=== PATIENT | female | born 1935 | race Caucasian/White ===

== ENCOUNTER → 2017-08-08 15:21 | Outpatient (CLI) | payer MEDICARE, SELFPAY ==
--- NOTE | 2017-08-08 15:40 | XR_ITS ---
XR wrist LT min 3V HISTORY injury with pain and swelling ITS.REASON: LEDT WRIST PAIN ORDERING PHYSICIAN: Heather Parks PATIENT AGE: 82 years COMPARISON: None FINDINGS: Nondisplaced distal radial fracture is present. There is a 1 cm anterior displacement of the distal fracture fragment and 7 mm lateral displacement of the distal fracture fragment. There is a transverse component of the fracture and probably a longitudinal component is well not well seen. CT may confirm. Avulsion fracture involves the tip of the ulnar styloid process as mildly displaced distally x 4 mm. Severe osteoarthritic changes are present first metacarpal carpal joint IMPRESSION: Comminuted displaced fracture of the distal radius with suspected intra-articular component which may be confirmed with CT along with avulsion fracture the ulnar styloid.
--- NOTE | 2017-08-08 19:23 | PC.NURSE ---
HERE WITH OUTPATIENT ORDER FOR SPLINTING OF LEFT WRIST PER BOGDAN MARTINEZ APRN. TO FOLLOW UP WITH DR MATUTE. DR MATUTE CALLED FOR CONSULT PER BOGDAN MARTINEZ APRN
--- NOTE | 2017-08-08 19:23 | PC.NURSE ---
order from primary care for Ortho-Glass splint. Review of x-ray read by Dr. Lutz states due to a displaced fracture of the total radius with suspected intra-articular component also with avulsion fracture of the ulnar styloid. Discussed x-ray report with Dr. Armstrong he recommended a sugar tong splint and sling. Pulses within normal limits patient states no numbness to hands or fingers. Splint placed instructed patient and family on ways to loosen the splint if swelling increases. Also to monitor for pulses and numbness. Patient states her primary care doctor is going to call for an appointment with Dr. Armstrong tomorrow morning. Patient instructed to return or be seen in the ER if symptoms worsen or do not improve.
== END ==
PROVIDERS: PCP Nurse Practitioner Family; Visit Provider Nurse Practitioner Family
DX: M25.532 Pain in left wrist (principal)
CPT/HCPCS: 73110

== ENCOUNTER → 2017-08-30 09:06 | Outpatient (CLI) | payer MEDICARE, SELFPAY ==
--- NOTE | 2017-08-30 09:09 | XR_ITS ---
XR wrist LT min 3V HISTORY follow-up fracture/ORIF ITS.REASON: 2 wk post op ORIF LT wrist ORDERING PHYSICIAN: Toribio Armstrong MD PATIENT AGE: 82 years COMPARISON: 08-17-17 FINDINGS: Anterior bone plate remains in place stabilizing a distal radial fracture which is in good alignment. Mildly displaced ulnar styloid avulsion fracture once again noted unchanged. IMPRESSION: No change status post ORIF distal radial fracture with good alignment
--- NOTE | 2017-08-30 09:19 | XR_ITS ---
XR tibia fibula RT 2V CLINICAL INDICATION: ITS.REASON: RT LEG PAIN,RT WRIST PAIN ORDERING PHYSICIAN: Toribio Armstrong MD PATIENT AGE: 82 years COMPARISON: None FINDINGS: No fracture or dislocation. Mild osteoarthritic changes are present at the knee and there is some scattered vascular calcification. IMPRESSION: Osteoarthritis of the knee, no acute finding
--- NOTE | 2017-08-30 09:19 | XR_ITS ---
XR wrist RT 2V HISTORY pain and numbness in right hand/wrist ITS.REASON: RT LEG PAIN,RT WRIST PAIN ORDERING PHYSICIAN: Toribio Armstrong MD PATIENT AGE: 82 years COMPARISON: None FINDINGS: There is faint increased density at the base of the first metacarpal. This is nonspecific and could be related to recent fracture. Please correlate with clinical parameters. Prominent osteophyte is present along the distal and ulnar aspect of the trapezium with mild osteoarthritic change of the first metacarpal carpal joint. The calcification at the base of the first metacarpal could be related to chondrocalcinosis. IMPRESSION: 1. Osteoarthritic change of the first metacarpal carpal joint. 2. Minimal calcification at the base of the first metacarpal which could relate to chondrocalcinosis or posttraumatic change..
== END ==
PROVIDERS: PCP Nurse Practitioner Family; Visit Provider Orthopaedic Surgery
DX: M79.604 Pain in right leg (principal); M25.531 Pain in right wrist
CPT/HCPCS: 73100; 73110; 73590

== ENCOUNTER 2017-08-30 11:07 | Outpatient (RCR) | payer MEDICARE, SELFPAY | END 2017-08-30 11:08 | disposition home or self-care (01) | LOC: OT 11:07 | PROVIDERS: Family Provider Nurse Practitioner Family; PCP Nurse Practitioner Family; Visit Provider Orthopaedic Surgery | DX: Z48.89 Encounter for other specified surgical aftercare (principal) | CPT/HCPCS: 73100; 73110; 73590; 97760 ==

== ENCOUNTER → 2017-09-27 09:33 | Outpatient (CLI) | payer MEDICARE, SELFPAY ==
--- NOTE | 2017-09-27 09:35 | XR_ITS ---
XR wrist LT min 3V HISTORY follow-up fracture ITS.REASON: 6WKS POST OP LT WRIST ORIF ORDERING PHYSICIAN: Toribio Armstrong MD PATIENT AGE: 82 years Comparison: 08/30/2017 FINDINGS: Bohler bone plate remains in place stabilizing comminuted distal radial fracture with good alignment of the fracture fragments. Increasing callus formation noted laterally The anterior splint has been removed. Avulsion of the ulnar styloid once again noted. Degenerative changes are present at the first metacarpal carpal joint IMPRESSION: Good alignment healing distal radial fracture status post ORIF Severe osteoarthritis first metacarpocarpal
== END ==
PROVIDERS: PCP Nurse Practitioner Family; Visit Provider Orthopaedic Surgery
DX: Z47.89 Encounter for other orthopedic aftercare (principal)
CPT/HCPCS: 73110

== ENCOUNTER 2020-11-11 02:28 | Inpatient (IN) | payer MEDICARE, MEDICAID, SELFPAY ==
[2020-11-11] VITALS (21 sets, daily range): BP systolic 94–167; BP diastolic 55–87; PULSE 68–89; RESP 14–34; TEMP 36.6–37.6; O2SAT 85–98; BMI 31.8
--- NOTE | 2020-11-11 02:28 | XR_ITS ---
PROCEDURE INFORMATION: Exam: XR Chest Exam date and time: 11/11/2020 2:28 AM Age: 85 years old Clinical indication: Shortness of breath; Patient HX: Short of breath PT has been put on bipap; Additional info: SOA TECHNIQUE: Imaging protocol: XR of the chest. Views: 1 view. Total images: 1 COMPARISON: CR CXR2V XR chest 2V 08/17/2017 10:43 AM FINDINGS: Lungs: Bibasilar pulmonary consolidations favor pneumonia. Pulmonary vascular congestion. Pleural spaces: Small bilateral pleural effusions are present. Heart/Mediastinum: Cardiomegaly. Vasculature: Atherosclerosis is evident. Bones/joints: Unremarkable. IMPRESSION: 1. Bibasilar pulmonary consolidations favor pneumonia. Radiographic surveillance is recommended to document resolution. 2. Pulmonary vascular congestion. 3. Small bilateral pleural effusions are present.
--- NOTE | 2020-11-11 02:29 | ECG_ITS ---
APPROVED REPORT Exam: Resting ECG HR:85 bpm ECG Measurements Heart Rate 85 AXES AL 134 P 29 QRSd 80 QRS 99 QT 336 T 22 QTc 399 Conclusion Normal sinus rhythm with sinus arrhythmia Rightward axis Borderline ECG Electronically signed by : Ralph Gavlez, 11/11/2020 16:59:21
[2020-11-11 02:31] LABS: ABG Base Excess 20.7 mmol/L (-2.4-2.3); ABG HCO3 48.9 mmhg (22.0-26.0); ABG Oxygen Saturation 83 % (90-100)
--- NOTE | 2020-11-11 02:31 | CT_ITS ---
PROCEDURE: CT ANGIO CHEST PE PROTOCOL CLINCIAL INDICATION: SOA COMPARISON: CR XR CHEST PORTABLE from 11/11/2020 TECHNIQUE: IV Contrast: 70ML Isovue 370 Axial images obtained with sagittal and coronal reformats. All CT scans at the facility use one or more dose reduction, viz: automated exposure control, ma/kV adjustment per patient size (including targeted exams where dose is matched to indication, i.e. head), or iterative reconstruction technique. FINDINGS: HEART AND MEDIASTINAL STRUCTURES: There is cardiomegaly. No evidence of aortic aneurysm or dissection. No evidence of pulmonary embolus. No mediastinal or hilar mass. There are few small mediastinal lymph nodes LUNGS AND PLEURAL SPACES: There are low lung volumes with centrilobular emphysema and scattered areas of scarring with pulmonary fibrotic changes peripherally in the upper and lower lobes. There is consolidation in both lower lobes posteriorly and inferiorly. There are small bilateral pleural effusions. There are low lung volumes bilaterally. Atelectatic changes are present in the inferior aspect of the lingula. BONY STRUCTURES: Kyphosis of the thoracic spine UPPER ABDOMEN: Medium-sized hiatal hernia. 3.4 cm left renal cyst ADDITIONAL FINDINGS: No other significant abnormalities. IMPRESSION: 1. No evidence of pulmonary embolus. 2. Centrilobular emphysema with pulmonary fibrosis. Bilateral lower lobe consolidation posteriorly which may be due to volume loss and or pneumonia with small bilateral effusions. Dictated by: Torey Pascual MD 11/11/2020 12:52 Torey Pascual MD in [place] 11/11/2020 12:52
[2020-11-11 02:33] LABS: ABG PH 7.19 mmol/L (7.35-7.45); Allen's Test Acceptable; Oxygen 6L %; Source Right Radial
[2020-11-11 02:34] LABS: ABG PCO2 131.7 mmhg (35.0-45.0); ABG PO2 48.6 mmhg (80-100)
[2020-11-11 02:37] LABS: Basophils % 0.6 % (0.1-2.0); Eosinophils % 0.5 % (0.1-12.0); Hematocrit 39.2 % (37.0-47.0); Hemoglobin 11.4 g/dL (12.2-16.2); Lymphocytes # 0.3 K/mm3 (0.7-4.5); Lymphocytes % 5.3 % (10-50); Mean Corpuscular HGB Conc 29.1 g/dL (31.8-35.4); Mean Corpuscular Hemoglobin 28.9 pg (27.0-31.2); Mean Corpuscular Volume 99.1 fl (81-99); Mean Platelet Volume 7.5 fl (7.4-10.4); Monocytes # 0.4 K/mm3 (0.1-1.0); Monocytes % 6.8 % (1.7-9.3); Neutrophils # 5.4 K/mm3 (1.8-7.8); Neutrophils % 86.8 % (37.0-80.0); Platelet Count 177 K/mm3 (142-424); Red Blood Count 3.95 M/mm3 (4.20-5.40); White Blood Count 6.2 K/mm3 (4.8-10.8)
--- NOTE | 2020-11-11 02:37 | PC.NURSE ---
MD notified of critical ABG results, ordered Bipap. Respiratory notified
[2020-11-11 02:41] LABS: Chloride 96 mmol/L (98-107)
[2020-11-11 02:42] LABS: Potassium 4.3 mmoL/L (3.5-5.1); Sodium 146 mmol/L (136-145)
[2020-11-11 02:44] LABS: Alanine Aminotransferase 18 U/L (12-78); Aspartate Amino Transferase 25 U/L (14-36); Blood Urea Nitrogen 17 mg/dl (7-17); Creatinine Clearance Estimated 52 mL/min (50-200); Estimated Glomerular Filt Rate 79 ml/min (>60); GFR (African American) 96 ML/MIN (>60)
[2020-11-11 02:45] LABS: Albumin Level 4.1 g/dl (3.5-5.0); Albumin/Globulin Ratio 1.1 (1.1-1.8); Alkaline Phosphatase 62 U/L (38-126); Bilirubin,Total 0.3 mg/dl (0.2-1.3); Calcium 9.6 mg/dl (8.4-10.2); Globulin 3.6 g/dL (1.3-3.2); Glucose 175 mg/dl (74-100); Total Protein,Serum 7.7 g/dl (6.3-8.2)
[2020-11-11 02:49] LABS: MANUAL DIFFERENTIAL MANUAL DIFFERENTIAL (MANUAL DIFF)
[2020-11-11 02:50] LABS: C-Reactive Protein 4.3 mg/L (0-4)
[2020-11-11 02:56] LABS: Anion Gap 8.3 mEq/L (5-15)
[2020-11-11 02:57] LABS: Carbon Dioxide 46 mmol/L (22.0-30.0)
--- NOTE | 2020-11-11 02:57 | PC.NURSE ---
Lorrie from lab called critical CO2 and name/ verified.
[2020-11-11 03:03] LABS: Coronavirus 19, PCR Not Detected (NotDetected); Influenza A, PCR Not Detected (NotDetected); Influenza B, PCR Not Detected (NotDetected)
[2020-11-11 03:04] LABS: NT Pro Brain Natriuretic Pep. 208 pg/mL (0-450)
[2020-11-11 03:11] LABS: Lactic Acid 0.8 mmol/L (0.7-2.1)
[2020-11-11 03:12] LABS: Procalcitonin 0.045 ng/mL (0.0-2.0)
[2020-11-11 03:39] LABS: Erythrocyte Sedimentation Rate 24 mm/hr (0-30)
[2020-11-11 03:57] LABS: Lymphocytes % 13 % (10-50); Monocytes % 1 % (2-9); Neutrophils % 84 % (42-76); Platelet Estimate Normal; Stomatocytes 1+; Total Cells Counted 100
[2020-11-11 03:58] LABS: Macrocytosis 1+
--- NOTE | 2020-11-11 04:16 | HMH.EDSOB ---
ED Disposition Clinical Impression: Acute exacerbation of chronic obstructive airways disease Respiratory failure Qualifiers: Chronicity: acute on chronic Respiratory failure complication: hypoxia and hypercapnia Qualified Code(s): J96.21 - Acute and chronic respiratory failure with hypoxia; J96.22 - Acute and chronic respiratory failure with hypercapnia Disposition: Admitted As Inpatient Condition on Discharge: Serious - Critical Care Critical Care Time: No Attestation: On 11/11/20, the high probability of a clinically significant, sudden or life threatening deterioration of the following system(s) required my full and direct attention, intervention and personal management. The time I documented below is in addition to time spent performing reported procedures but includes the following listed in this critical care notation. Medical Decision Making - Medical Records Medical records reviewed: Yes: I reviewed the patient's medical records. - Julio Inquiry Pt receiving controlled substance: No Vital Signs: 11/11/20 02:26 11/11/20 03:46 Temperature 99.1 F Temperature Source Oral Pulse Rate [Right] 86 Respiratory Rate 28 H Blood Pressure [Right Arm] 148/60 H Blood Pressure Mean [Right Arm] 89 Blood Pressure Source [Right Arm] Automatic Cuff 02 Sat by Pulse Oximetry 89 L 94 L Oxygen Delivery Method Nasal Cannula BiPAP Oxygen Flow Rate (LPM) 6 - Lab Data Lab results reviewed: Yes: I reviewed the patient's lab results. Lab Results 11/11/20 02:15: WBC 6.2, RBC 3.95 L, Hgb 11.4 L, Hct 39.2, MCV 99.1 H, MCH 28.9, MCHC 29.1 L, RDW 13.0, Plt Count 177, MPV 7.5, Neut % (Auto) 86.8 H, Lymph % (Auto) 5.3 L, [place] % (Auto) 6.8, Eos % (Auto) 0.5, Baso % (Auto) 0.6, Neut # (Auto) 5.4, Lymph # (Auto) 0.3 L, [place] # (Auto) 0.4, Eos # (Auto) 0.0, Baso # (Auto) 0.0, Total Counted 100, Neutrophils % (Manual) 84 H, Lymphocytes % (Manual) 13, Monocytes % (Manual) 1 L, Basophils % (Manual) 2.0 H, Platelet Estimate Normal, RBC Morphology Not Reportable, Macrocytosis 1+, Stomatocytes 1+, ESR 24 11/11/20 02:15: Sodium 146 H, Potassium 4.3, Chloride 96 L, Carbon Dioxide 46 H*, Anion Gap 8.3, BUN 17, Creatinine 0.70, Estimated Creat Clear 52, Estimated GFR 79, Est GFR ( Amer) 96, Glucose 175 H, Calcium 9.6, Total Bilirubin 0.3, AST 25, ALT 18, Alkaline Phosphatase 62, C-Reactive Protein 4.3 H, Total Protein 7.7, Albumin 4.1, Globulin 3.6 H, Albumin/Globulin Ratio 1.1 11/11/20 02:15: Procalcitonin 0.045 11/11/20 02:15: NT-Pro-B Natriuret Pep 208 11/11/20 02:27: Specimen Source Right radial, O2 % 6l, ABG pH 7.19 L*, ABG pCO2 131.7 H, ABG pO2 48.6 L, ABG HCO3 48.9 H, ABG Total CO2 53.0 H, ABG O2 Saturation 83 L*, ABG Base Excess 20.7 H, Torey Test Acceptable 11/11/20 02:40: SARS-CoV-2 (PCR) Not detected, Influenza A Untype (PCR) Not detected, Influenza Type B (PCR) Not detected 11/11/20 02:50: Lactate 0.8 Result diagrams: 11/11/20 02:15 11/11/20 02:15 Orders (Tests/Meds): ED MEDICATIONS Generic Name Dose Route Start Last Admin Trade Name Agustínq PRN Reason Stop Dose Admin Sodium Chloride 1,000 mls @ 999 mls/hr 11/11/20 02:45 11/11/20 02:52 Sod Chlor 0.9% 1000ml Bag IV 11/11/20 03:45 999 mls/hr .Q1H1M LATRICIA Administration Azithromycin 500 mg/ Sodium 250 mls @ 250 mls/hr 11/11/20 02:45 11/11/20 02:52 Chloride IV 11/25/20 02:44 250 mls/hr Q24H LATRICIA Administration Protocol Ceftriaxone Sodium 1 gm/ 50 mls @ 100 mls/hr 11/11/20 02:45 11/11/20 02:53 Sodium Chloride IV 11/25/20 02:44 100 mls/hr Q24H LATRICIA Administration Protocol Discontinued Medications Generic Name Dose Route Start Last Admin Trade Name Freq PRN Reason Stop Dose Admin Methylprednisolone Sodium Succinate 125 mg 11/11/20 02:30 11/11/20 02:33 Methylprednisolone Sod Succ 125mg Vial IV 11/11/20 02:31 Not Given ONCE ONE ORDERS Category Date Time Status CT angio chest PE protocol Stat Cat Scan 11/11/20 02:
--- NOTE | 2020-11-11 04:34 | PC.NURSE ---
Pt is not stable enough for transport to CT, I spoke with Dr Fuentes and he agreed to hold on the CT at this time.
[2020-11-11 04:52] LABS: Troponin I 0.02 ng/ml (0.00-0.034)
--- NOTE | 2020-11-11 06:59 | PC.NURSE ---
A&OX4. PT ON BIPAP, NOT TOLERATING VERY WELL. PT IS PULLING AT BIPAP, GETTING VERY ANGRY. F/C DRAINING BRIGHT YELLOW URINE. NO C/O PAIN/SOA SINCE ARRIVAL. VSS WILL CONTINUE TO MONITOR.
--- NOTE | 2020-11-11 07:14 | HMH.HP ---
*Admission Date: 11/11/20 *Chief complaint: hypoxic *History of present illness: Ms. Pang is an 85-year-old female with chronic hypoxemic respiratory failure (end-stage COPD) on 3-4 L nasal cannula at home. She was brought to the ER last night via EMS due to worsening confusion, tremor, hypoxia at home. Per ER documentation and her granddaughter at bedside, patient's oxygen was turned up to 5 L and she was still satting in the 80s at best. When EMS arrived they put her on higher oxygen support with inability to get her above 90. Family and EMS convinced her to come to the ER for further evaluation. On arrival she was worked up for her respiratory failure. Initial labs concerning for hypercarbia, hypoxemia, and possible pneumonia on chest imaging. Patient additionally has history of hypertension, GERD, and former tobacco use. Patient more alert on interview this morning. CO2 has decreased from over 120 to the 90 range. Respiratory acidosis improving. Patient transition to nasal cannula for interview and able to answer questions though disoriented to place and time. Denies any pain. Still feels short of breath. Afebrile. Blood pressure stable. Family at bedside, updated on plan and diagnosis at this time. [facility] History I have reviewed the patient's past medical history: Yes Medical History: Reports:: Chronic Obstructive Pulmonary Disease (COPD), Gastroesophageal Reflux Disease(GERD), Hyperlipidemia Denies:: Cancer, Diabetes Mellitus Type 1, Diabetes Mellitus Type 2, Internal Pacemaker, MRSA, Seizures *Have you ever received a pneumonia vaccine?: No *Have you received a flu vaccine this season?: No Other Medical History: Reports: Arthritis, Cataracts. Denies: Blood Transfusion Reaction Other Surgeries: Yes: Other. No: Pacemaker Amputation: No Fractures: Yes - *Social History Smoking Status: Former smoker Alcohol Intake: never *Occupational Status:: retired Housing: house Household Members: family *Travel in the last 8 weeks: None Family Hx:: No significant family history Review of Systems - Review of Systems Review of systems:: pertinent systems reviewed and negative unless documented below (14 point review of systems performed, pertinent positives and negatives as per HPI) - *Neurologic Denies headache(s), Denies seizure-like activity Meds Home Medications Medication Instructions Recorded Confirmed Type furosemide 20 mg tablet 20 mg PO DAILY 30 Days #30 08/09/11/11/20 History losartan 100 mg tablet 50 mg PO DAILY 30 Days tab 08/09/17 11/11/20 History omeprazole 20 mg capsule,delayed 20 mg PO DAILY 30 Days #30 08/09/17 11/11/20 History release potassium chloride 10 mEq 10 meq PO DAILY 30 Days #30 08/09/17 11/11/20 History capsule,extended release Multivitamin [Multivitamins] 1 tab PO DAILY 08/17/17 11/11/20 History Albuterol Sulfate [Albuterol 1 - 2 puff IH Q4HP PRN 11/11/20 11/11/20 History Sulfate Hfa] Fluticasone/Umeclidin/Vilanter 1 puff IH DAILY 11/11/20 11/11/20 History [Trekathya Ellipta 100-62.5-25] Allergies Allergy/AdvReac Type Severity Reaction Status Date / Time cephalexin Allergy Intermediate Unknown Verified 11/11/20 08:06 allergy reaction Exam Vital signs and Labs for Last 24 Hours: Temp Pulse Resp BP Pulse Ox 98.6 F 68 25 H 156/85 H 94 L 11/11/20 05:30 11/11/20 05:30 11/11/20 05:30 11/11/20 05:30 11/11/20 04:20 Laboratory Results - last 24 hr 11/11/20 02:15: WBC 6.2, RBC 3.95 L, Hgb 11.4 L, Hct 39.2, MCV 99.1 H, MCH 28.9, MCHC 29.1 L, RDW 13.0, Plt Count 177, MPV 7.5, Neut % (Auto) 86.8 H, Lymph % (Auto) 5.3 L, [place] % (Auto) 6.8, Eos % (Auto) 0.5, Baso % (Auto) 0.6, Neut # (Auto) 5.4, Lymph # (Auto) 0.3 L, [place] # (Auto) 0.4, Eos # (Auto) 0.0, Baso # (Auto) 0.0, Total Counted 100, Neutrophils % (Manual) 84 H, Lymphocytes % (Manual) 13, Monocytes % (Manual) 1 L, Basophils % (Manual) 2.0 H, Platelet Estimate Normal, RBC Morphology Not Reportable, Mac
[2020-11-11 07:23] LABS: ABG Base Excess 13.5 mmol/L (-2.4-2.3); ABG HCO3 40.6 mmhg (22.0-26.0); ABG Oxygen Saturation 90 % (90-100); ABG PH 7.26 mmol/L (7.35-7.45); ABG TCO2 43.5 mmhg (23-27)
[2020-11-11 07:24] LABS: Allen's Test ACCEPTABLE; Oxygen 45% %; Source L RADIAL; Tidal Volume 20/10
[2020-11-11 07:26] LABS: ABG PCO2 93.4 mmhg (35.0-45.0)
[2020-11-11 07:27] LABS: ABG PO2 56.8 mmhg (80-100)
--- NOTE | 2020-11-11 07:30 | XR_ITS ---
PROCEDURE: XR CHEST PORTABLE CLINICAL HISTORY: sob Shortness of breath COMPARISON: CT ABDPELW/O CT ABD PELVIS W/O CONTRAST from 11/10/2014 CR CXR2V XR chest 2V from 08/17/2017 CR XR CHEST PORTABLE from 11/11/2020 FINDINGS: There is cardiomegaly with mild pulmonary venous congestion. Diffuse pulmonary fibrotic changes are once again noted. There are low lung volumes. Hiatal hernia. Atelectasis or infiltrate once again noted in the lung bases. Lucency is noted over the posterior lateral aspect of the left 6th rib and could be due to a fracture versus overlying artifact. IMPRESSION: Overall no significant change in the mild CHF with atelectasis or infiltrate in the lung bases. Possible left 6th rib fracture Dictated by: Torey Pascual MD 11/11/2020 09:52 Torey Pascual MD in [place] 11/11/2020 09:52
--- NOTE | 2020-11-11 07:30 | PC.NURSE ---
CRITICAL ABG RECEIVED. NAME AND VERIFIED. RESULTS REPORTED TO MD BAR.
--- NOTE | 2020-11-11 09:53 | HMH.PHAINT ---
MEDICATION RECONCILIATION COMPLETE USING LIST FROM MD OFFICE.
--- NOTE | 2020-11-11 09:57 | P.CONPHA_ITS ---
[facility] Pharmacy VTE Monitoring - Patient Demographics Admission date: 11/11/20 Report Date: 11/11/20 Time: 09:57 Allergies/Adverse Reactions: Patient Allergies cephalexin Allergy (Intermediate, Verified 11/11/20 08:06) Unknown allergy reaction Height: 1.6 m Weight: 81.7 kg Patient Problems: Current Active Problems Acute exacerbation of chronic obstructive airways disease (Acute) Respiratory failure (Acute) Acute on chronic respiratory failure with hypercapnia (Acute) Anemia (Acute) Hypernatremia (Acute) COPD (chronic obstructive pulmonary disease) (Acute) - VTE Risk Labs: VTE Related Lab Results Hgb 11.4 g/dL (12.2-16.2) L 11/11/20 02:15 Hct 39.2 % (37.0-47.0) 11/11/20 02:15 Plt Count 177 K/mm3 (142-424) 11/11/20 02:15 BUN 17 mg/dl (7-17) 11/11/20 02:15 Creatinine 0.70 mg/dl (0.52-1.04) 11/11/20 02:15 Estimated Creat Clear 52 mL/min (50-200) 11/11/20 02:15 Was VTE Risk Assessment Performed: Yes VTE Score: 1 VTE Risk Level: Low Risk Clinical Trial Participant: No - Prophylaxis VTE Prophylaxis Ordered?: Yes Types of VTE Prophylaxis: TEDS Knee High
[2020-11-11 09:59] LABS: Basophils % 0.1 % (0.1-2.0); Eosinophils % 0.2 % (0.1-12.0); Hematocrit 38.2 % (37.0-47.0); Hemoglobin 10.9 g/dL (12.2-16.2); Lymphocytes # 1.1 K/mm3 (0.7-4.5); Lymphocytes % 18.1 % (10-50); Mean Corpuscular HGB Conc 28.5 g/dL (31.8-35.4); Mean Corpuscular Hemoglobin 28.3 pg (27.0-31.2); Mean Corpuscular Volume 99.3 fl (81-99); Mean Platelet Volume 7.5 fl (7.4-10.4); Monocytes # 0.1 K/mm3 (0.1-1.0); Neutrophils # 4.8 K/mm3 (1.8-7.8); Neutrophils % 79.6 % (37.0-80.0); Platelet Count 171 K/mm3 (142-424); Red Blood Count 3.85 M/mm3 (4.20-5.40); Red Cell Distribution Width 12.9 % (11.5-17.5)
[2020-11-11 10:02] LABS: Blood Urea Nitrogen 18 mg/dl (7-17); Calcium 9.1 mg/dl (8.4-10.2); Chloride 99 mmol/L (98-107); Creatinine Clearance Estimated 52 mL/min (50-200); Estimated Glomerular Filt Rate 117 ml/min (>60); GFR (African American) 142 ML/MIN (>60); Glucose 166 mg/dl (74-100); Magnesium 1.6 mg/dl (1.6-2.3); Potassium 4.9 mmoL/L (3.5-5.1); Sodium 146 mmol/L (136-145)
[2020-11-11 10:10] LABS: Anion Gap 11.9 mEq/L (5-15)
[2020-11-11 10:17] LABS: Carbon Dioxide 40 mmol/L (22.0-30.0)
--- NOTE | 2020-11-11 10:54 | PC.NURSE ---
notified of critical CO2 of 40 at 1016. repeated and verified pt name, , v# and critical value back. left message for Dr De La Cruz in office [id number]
--- NOTE | 2020-11-11 11:02 | PC.NURSE ---
back on bipap at this time r/t pt taking a nap. FIO2 increased to 60% r/t o2 sat at 83 on 45%
--- NOTE | 2020-11-11 11:03 | PC.NURSE ---
SRNA attempted to apply MOUSTAPHA hathaway, pt was initially agreeable. after one stocking applied pt stated that she did not want that! It hurts
--- NOTE | 2020-11-11 11:49 | CA_ITS ---
APPROVED REPORT EXAM: Comprehensive 2D, Doppler, and color-flow Echocardiogram Solderer Torch: Annabella Anthony, DREW, RVS Ht: 5 ft 2 in Wt: 180lbs BSA: 1.83 BP: 126/68 mmHg Indications: Respiratory failure, COPD-exacerbation 2D Dimensions IVSd 1.09 cm LVEF (Visual) 75.90 % PWd 1.04 cm LA Volume 52.00 mL LVDd 4.81 cm LA Volume Index 28.276714 mL/m2 (M/F) 16-34 LVDs 2.66 cm Aortic Root 2.73 cm Left Atrium 2.74 cm LVOT 1.74 cm (M/F) 1.5-2.5 M-Mode Dimensions LA Diam 4.15 cm (1.9-4.0) Ao Diam 2.91 cm (2.0-3.7) EPSs 0.42 cm TAPSE 2.87 (<1.7) LV Diastology E Decel Time 237.00 (160-240 msec) E/A Ratio 0.78 MED E' 7.50 (< 7 cm/sec) MED A' 10.60 cm/s E'/MED E' Ratio 13.17 (>14) LAT E' 11.50 (<10 cm/sec) LAT A' 14.20 cm/s E/LAT E' Ratio 8.59 (>14) Aortic Valve LVOT Max 129.00 (70-110 cm/s) LVOT VTI 25.49 cm AoV Peak Prabhjot. 233.00 (50-130 cm/s) AO Peak GR. 21.80 mmHg AO Mean GR. 10.70 (<5 mmHg) AO VTI 43.53 (18-25 cm) ALEKSANDRA (VTI) 1.39 (2.5-4.5 cm2) Mitral Valve MV E Max Prabhjot. 99.00 (40-130 cm/s) MV A Velocity 126.00 (40-130 cm/s) E/A Ratio 0.78 MV Decel. Time 237.00 (160-240 ms) MV PHT 69.00 ms Pulmonary Valve PV Peak Velocity 98.00 (50-150 cm/s) Tricuspid Valve TR P. Velocity 388.00 cm/s RAP Estimate 10.00 mmHg RVSP 70.40 mmHg Left Ventricle Left atrium is mildly enlarged, left ventricle is normal size, mild concentric left ventricular hypertrophy, visually estimated ejection fraction 55% with no regional wall motion abnormality, grade 1 diastolic dysfunction seen without tissue Doppler evidence of raise left atrial pressure. Right Ventricle Right atrium and right ventricle mildly enlarged with normal contractility. Aortic Valve Aortic valve is minimally thickened and fibrosed, the mean gradient across valve is 11 mmHg, valve area is 1.4 cm??? represents mild aortic stenosis. There is no significant aortic insufficiency. Mitral Valve Mitral valve is grossly normal, there is mild mitral regurgitation. Tricuspid Valve Tricuspid grossly normal, there is mild tricuspid regurgitation, calculated right ventricular systolic pressure 70 mmHg, assuming right atrial pressure of 10 mmHg. Pulmonic Valve Pulmonic valve is poorly visualized Great Vessels Aortic root is normal size. Inferior vena cava is normal size with normal inspiratory collapse. Pericardium No significant pericardial effusion noted. Conclusion 1. Mild biatrial normal, normal left ventricular size, mild concentric left ventricular hypertrophy, visually estimated ejection fraction 55% with no regional wall motion abnormality, grade 1 diastolic dysfunction seen without tissue Doppler evidence of raise left atrial pressure. 2. Mildly enlarged right ventricle with normal contractility. 3. Thickened and calcified aortic valve with mild aortic stenosis, valve area is 1.4 cm???. 4. Mild mitral and tricuspid regurgitation, calculated right ventricular systolic pressure is 70 mmHg, assuming right atrial pressure of 10 mmHg. 5. No significant pericardial effusion noted, inferior vena cava is normal size with normal inspiratory collapse. Electronically signed by : Michael Bowling, 11/11/2020 19:55:21
--- NOTE | 2020-11-11 22:51 | PC.NURSE ---
She is A&Ox3. She answers all questions correctly but has been talking to someone in the room when there was nobody in the room. She tried to be off the bipap and on nasal cannula to be able to talk to family but her sats decreased to the lower 80s and she did not tolerate it well. Was placed back on bipap at 60% FiO2. Her family is in the room. She is having her granddaughter to give her a bath.
[2020-11-12] VITALS (12 sets, daily range): BP systolic 126–169; BP diastolic 64–71; PULSE 71–93; RESP 18–34; TEMP 36.5–37.1; O2SAT 90–97; BMI 32.8
[2020-11-12 05:31] LABS: POC Glucose,Bedside 138 (70-110)
[2020-11-12 06:57] LABS: Basophils % 0.2 % (0.1-2.0); Eosinophils % 0.2 % (0.1-12.0); Hematocrit 37.7 % (37.0-47.0); Hemoglobin 11.3 g/dL (12.2-16.2); Lymphocytes # 0.4 K/mm3 (0.7-4.5); Lymphocytes % 5.9 % (10-50); Mean Corpuscular HGB Conc 29.9 g/dL (31.8-35.4); Mean Corpuscular Hemoglobin 28.7 pg (27.0-31.2); Mean Corpuscular Volume 96.1 fl (81-99); Mean Platelet Volume 7.8 fl (7.4-10.4); Monocytes # 0.2 K/mm3 (0.1-1.0); Monocytes % 2.8 % (1.7-9.3); Neutrophils # 5.9 K/mm3 (1.8-7.8); Neutrophils % 90.9 % (37.0-80.0); Platelet Count 184 K/mm3 (142-424); Red Blood Count 3.93 M/mm3 (4.20-5.40); Red Cell Distribution Width 13.5 % (11.5-17.5); White Blood Count 6.5 K/mm3 (4.8-10.8)
[2020-11-12 07:02] LABS: MANUAL DIFFERENTIAL MANUAL DIFFERENTIAL (MANUAL DIFF)
[2020-11-12 07:10] LABS: Alanine Aminotransferase 23 U/L (12-78); Albumin Level 3.8 g/dl (3.5-5.0); Albumin/Globulin Ratio 1.2 (1.1-1.8); Alkaline Phosphatase 55 U/L (38-126); Aspartate Amino Transferase 32 U/L (14-36); Bilirubin,Total 0.4 mg/dl (0.2-1.3); Blood Urea Nitrogen 23 mg/dl (7-17); Calcium 9.2 mg/dl (8.4-10.2); Chloride 98 mmol/L (98-107); Creatinine Clearance Estimated 53 mL/min (50-200); Estimated Glomerular Filt Rate 95 ml/min (>60); GFR (African American) 115 ML/MIN (>60); Globulin 3.1 g/dL (1.3-3.2); Glucose 149 mg/dl (74-100); Magnesium 1.6 mg/dl (1.6-2.3); Potassium 4.7 mmoL/L (3.5-5.1); Sodium 145 mmol/L (136-145); Total Protein,Serum 6.9 g/dl (6.3-8.2)
[2020-11-12 07:19] LABS: Anion Gap 7.7 mEq/L (5-15)
[2020-11-12 07:21] LABS: Carbon Dioxide 44 mmol/L (22.0-30.0)
[2020-11-12 07:53] LABS: ABG HCO3 39.8 mmhg (22.0-26.0); ABG Oxygen Saturation 96 % (90-100); ABG PH 7.22 mmol/L (7.35-7.45); ABG PO2 86.6 mmhg (80-100); ABG TCO2 42.9 mmhg (23-27)
[2020-11-12 07:56] LABS: Allen's Test ACCEPTABLE; Oxygen 60 %; Source R RADIAL; Tidal Volume 16/8; Vent Rate 20
[2020-11-12 07:57] LABS: ABG PCO2 100.2 mmhg (35.0-45.0)
--- NOTE | 2020-11-12 07:58 | HMH.ACPN2 ---
Internal Medicine - PN: Subj *Date: 11/12/20 *Time: 07:58 Interval history: Patient has been on BiPAP overnight, feels much more comfortable but is thirsty and hungry. Exam Vital signs and Labs for Last 24 Hours: Temp Pulse Resp BP Pulse Ox 98.4 F 91 H 18 146/68 H 95 11/12/20 03:35 11/12/20 06:36 11/12/20 03:35 11/12/20 03:35 11/12/20 06:36 Laboratory Results - last 24 hr 11/11/20 09:46: WBC 6.0, RBC 3.85 L, Hgb 10.9 L, Hct 38.2, MCV 99.3 H, MCH 28.3, MCHC 28.5 L, RDW 12.9, Plt Count 171, MPV 7.5, Neut % (Auto) 79.6, Lymph % (Auto) 18.1, [place] % (Auto) 2.0, Eos % (Auto) 0.2, Baso % (Auto) 0.1, Neut # (Auto) 4.8, Lymph # (Auto) 1.1, [place] # (Auto) 0.1, Eos # (Auto) 0.0, Baso # (Auto) 0.0 11/11/20 09:46: Sodium 146 H, Potassium 4.9, Chloride 99, Carbon Dioxide 40 H, Anion Gap 11.9, BUN 18 H, Creatinine 0.50 L D, Estimated Creat Clear 52, Estimated GFR 117, Est GFR ( Amer) 142 D, Glucose 166 H, Calcium 9.1, Magnesium 1.6 11/12/20 04:49: POC Glucose 138 H 11/12/20 06:00: Specimen Source R radial, O2 % 60, ABG pH 7.22 L*, ABG pCO2 100.2 H, ABG pO2 86.6, ABG HCO3 39.8 H, ABG Total CO2 42.9 H, ABG O2 Saturation 96, ABG Base Excess 12.0 H, [place]orey Test Acceptable, Vent Rate 20, Tidal Volume 16/8 11/12/20 06:13: WBC 6.5, RBC 3.93 L, Hgb 11.3 L, Hct 37.7, MCV 96.1, MCH 28.7, MCHC 29.9 L, RDW 13.5, Plt Count 184, MPV 7.8, Neut % (Auto) 90.9 H, Lymph % (Auto) 5.9 L, [place] % (Auto) 2.8, Eos % (Auto) 0.2, Baso % (Auto) 0.2, Neut # (Auto) 5.9, Lymph # (Auto) 0.4 L, [place] # (Auto) 0.2, Eos # (Auto) 0.0, Baso # (Auto) 0.0 11/12/20 06:13: Sodium 145, Potassium 4.7, Chloride 98, Carbon Dioxide 44 H*, Anion Gap 7.7, BUN 23 H D, Creatinine 0.60, Estimated Creat Clear 53, Estimated GFR 95, Est GFR ( Amer) 115, Glucose 149 H, Calcium 9.2, Magnesium 1.6, Total Bilirubin 0.4, AST 32 D, ALT 23 D, Alkaline Phosphatase 55, Total Protein 6.9, Albumin 3.8, Globulin 3.1, Albumin/Globulin Ratio 1.2 I & O for Last 24 hours: Intake & Output 11/09/20 11/10/20 11/11/20 11/12/20 11:59 11:59 11:59 11:59 Intake Total 1300 / 1300 924 / 924 Output Total 2125 / 2125 Balance 1300 / 1300 -1201 / -1201 Weight 180 lb 1.883 oz 184 lb 15.485 oz Microbiology Reports for the Last 24 Hours: Microbiology 11/11/20 02:50 Blood Blood Culture - Preliminary Narrative: Patient on BiPAP, is alert, pleasant, remembers me from many years ago. Lungs have scattered rhonchi and poor air movement but symmetric. Heart rate regular. Abdomen is soft, no peripheral edema. She able to move all extremities well. Assessment and Plan (1) Acute on chronic respiratory failure with hypercapnia Status: Acute Category: Medical Code(s): J96.22 - Acute and chronic respiratory failure with hypercapnia (2) Anemia Status: Acute Category: Medical Code(s): D64.9 - Anemia, unspecified (3) Hypernatremia Status: Acute Category: Medical Code(s): E87.0 - Hyperosmolality and hypernatremia (4) COPD (chronic obstructive pulmonary disease) Status: Acute Category: Medical Code(s): J44.9 - Chronic obstructive pulmonary disease, unspecified (5) Essential hypertension Status: Chronic Category: Medical Code(s): I10 - Essential (primary) hypertension (6) Class 1 obesity Status: Chronic Category: Medical Code(s): E66.9 - Obesity, unspecified - Assessment and plan all Dx Assessment and Plan for all problems:: Respiratory status seems to be improving. Try to maximize patient's mobility today with a PT consult and try to get her up in a chair. Try to advance diet. Trilogy device for high flow oxygen is an excellent option for patient to be able to go home with enhanced oxygenation and ventilation requirements. We will try this device this afternoon. Consider discharge home tomorrow if does well.
--- NOTE | 2020-11-12 08:19 | PC.NURSE ---
Sat on 3 L O2/NC for only a few minutes in preperation for medical staff director pt's SPO2 was 82%. PT placed back on BIPAP.
[2020-11-12 09:03] LABS: Hypochromasia 2+; Lymphocytes % 3 % (10-50); Macrocytosis 1+; Monocytes % 3 % (2-9); Neutrophils % 94 % (42-76); Platelet Estimate Normal; Total Cells Counted 100
--- NOTE | 2020-11-12 09:48 | SW/DCPLANNER ---
Addendum entered by Mari Engle 11/17/20 15:11: PATIENT IS DISCHARGING TO [facility] TODAY, PATIENT IS NOT ABLE TO WEAR THE TRILOGY AND A BIPAP WAS ORDERED... FAMILY WAS CONCERNED ABOUT HER GOING THERE AFTER I HAD A LONG CONVERSATION WITH THE DAUGHTER LAST WEEK WHEN [facility] DID NOT HAVE ANY FEMALE BEDS AT THAT TIME.. THEY AGREED TO GO TO [facility] BUT NOW WANTS [facility], I SENT REFERRAL TO [facility] BUT TOLD MO PATIENT WOULD DISCHARGE TO [facility] AND THEN THEY COULD TAKE HER FROM THERE.... Addendum entered by Sudha Guevara RN 11/13/20 10:28: Contacted Norma, patient's daughter. She is going to speak to her sister, Demetria, about rehab at SNF for patient and let us know what they and the patient decide. HORACIO Weiss Addendum entered by Mari Engle 11/13/20 06:59: MADE CALLS TO THE DAUGHTERS REGARDING DISCHARGE PLANNING ON THIS PATIENT... THERAPY STATED SHE COULD BENEFIT FROM SOME REHAB BUT THEY ALSO STATED IF SHE HAS 24/7 HELP SHE COULD RETURN HOME.. I LEFT MESSAGES FOR BOTH DAUGHTERS TO CALL ME AND I HAVE NOT HEARD ANYTHING FROM EITHER OF THEM ON WHAT THE PLAN IS FOR THEIR MOTHER... Original Note: SENT ORDERS FOR A TRILOGY FOR THIS PATIENT TO USE TONIGHT TO SEE IF SHE IS GOING TO BE ABLE TO SLEEP ON IT...IT WILL BE BROUGHT UP FROM [facility] AND PATIENT WILL USE IT DURING THE NIGHT AND BE MONITORED BY STAFF AND IF PATIENT IS ABLE TO GO HOME MAY BE ABLE TO DISCHARGE IN THE NEXT DAY OR TWO... WILL LET RESPIRATORY KNOW AND NURSING...
--- NOTE | 2020-11-12 09:56 | HMH.PHACONS ---
<Demetris Hylton - Last Filed: 11/12/20 09:56> - Pharmacy Consult Date: 11/12/20 Time: 09:56 Referring provider: SHALOM Reason for Consult:: VANCOMYCIN DOSING CONSULT Allergies and ADEs:: Allergies Allergy/AdvReac Type Severity Reaction Status Date / Time cephalexin Allergy Intermediate Unknown Verified 11/11/20 08:06 allergy reaction Home Medications:: Home Medications Medication Instructions Recorded Confirmed Type furosemide 20 mg tablet 20 mg PO DAILY 30 Days #30 08/09/17 11/11/20 History losartan 100 mg tablet 50 mg PO DAILY 30 Days tab 08/09/17 11/11/20 History omeprazole 20 mg capsule,delayed 20 mg PO DAILY 30 Days #30 08/09/17 11/11/20 History release potassium chloride 10 mEq 10 meq PO DAILY 30 Days #30 08/09/17 11/11/20 History capsule,extended release Multivitamin [Multivitamins] 1 tab PO DAILY 08/17/17 11/11/20 History Albuterol Sulfate [Albuterol 1 - 2 puff IH Q4HP PRN 11/11/20 11/11/20 History Sulfate Hfa] Fluticasone/Umeclidin/Vilanter 1 puff IH DAILY 11/11/20 11/11/20 History [Trelegy Ellipta 100-62.5-25] Height: 1.6 m Weight: 83.9 kg Laboratory Results:: Laboratory Results - last 24 hr 11/11/20 09:46: WBC 6.0, RBC 3.85 L, Hgb 10.9 L, Hct 38.2, MCV 99.3 H, MCH 28.3, MCHC 28.5 L, RDW 12.9, Plt Count 171, MPV 7.5, Neut % (Auto) 79.6, Lymph % (Auto) 18.1, [place] % (Auto) 2.0, Eos % (Auto) 0.2, Baso % (Auto) 0.1, Neut # (Auto) 4.8, Lymph # (Auto) 1.1, [place] # (Auto) 0.1, Eos # (Auto) 0.0, Baso # (Auto) 0.0 11/11/20 09:46: Sodium 146 H, Potassium 4.9, Chloride 99, Carbon Dioxide 40 H, Anion Gap 11.9, BUN 18 H, Creatinine 0.50 L D, Estimated Creat Clear 52, Estimated GFR 117, Est GFR ( Amer) 142 D, Glucose 166 H, Calcium 9.1, Magnesium 1.6 11/12/20 04:49: POC Glucose 138 H 11/12/20 06:00: Specimen Source R radial, O2 % 60, ABG pH 7.22 L*, ABG pCO2 100.2 H, ABG pO2 86.6, ABG HCO3 39.8 H, ABG Total CO2 42.9 H, ABG O2 Saturation 96, ABG Base Excess 12.0 H, [place]orey Test Acceptable, Vent Rate 20, Tidal Volume 16/8 11/12/20 06:13: WBC 6.5, RBC 3.93 L, Hgb 11.3 L, Hct 37.7, MCV 96.1, MCH 28.7, MCHC 29.9 L, RDW 13.5, Plt Count 184, MPV 7.8, Neut % (Auto) 90.9 H, Lymph % (Auto) 5.9 L, [place] % (Auto) 2.8, Eos % (Auto) 0.2, Baso % (Auto) 0.2, Neut # (Auto) 5.9, Lymph # (Auto) 0.4 L, [place] # (Auto) 0.2, Eos # (Auto) 0.0, Baso # (Auto) 0.0, Total Counted 100, Neutrophils % (Manual) 94 H, Lymphocytes % (Manual) 3 L, Monocytes % (Manual) 3, Platelet Estimate Normal, Hypochromasia 2+, Macrocytosis 1+ 11/12/20 06:13: Sodium 145, Potassium 4.7, Chloride 98, Carbon Dioxide 44 H*, Anion Gap 7.7, BUN 23 H D, Creatinine 0.60, Estimated Creat Clear 53, Estimated GFR 95, Est GFR ( Amer) 115, Glucose 149 H, Calcium 9.2, Magnesium 1.6, Total Bilirubin 0.4, AST 32 D, ALT 23 D, Alkaline Phosphatase 55, Total Protein 6.9, Albumin 3.8, Globulin 3.1, Albumin/Globulin Ratio 1.2 Medical History: Reports:: Chronic Obstructive Pulmonary Disease (COPD), Gastroesophageal Reflux Disease(GERD), Hyperlipidemia Denies:: Cancer, Diabetes Mellitus Type 1, Diabetes Mellitus Type 2, Internal Pacemaker, MRSA, Seizures Assessment and Plan (1) Acute on chronic respiratory failure with hypercapnia Status: Acute Category: Medical Code(s): J96.22 - Acute and chronic respiratory failure with hypercapnia (2) Anemia Status: Acute Category: Medical Code(s): D64.9 - Anemia, unspecified (3) Hypernatremia Status: Acute Category: Medical Code(s): E87.0 - Hyperosmolality and hypernatremia (4) COPD (chronic obstructive pulmonary disease) Status: Acute Category: Medical Code(s): J44.9 - Chronic obstructive pulmonary disease, unspecified (5) Essential hypertension Status: Chronic Category: Medical Code(s): I10 - Essential (primary) hypertension (6) Class 1 obesity Status: Chronic Category: Medical Code(s): E66.9 - Obesity, unspecified <Reyna Rodriguez - Last Filed: 11/12/20 10:02> - Pharmacy Con
--- NOTE | 2020-11-12 10:03 | HMH.OTEV ---
OT Inpatient Evaluation Rehab OT IP Evaluation Start: 11/12/20 07:58 Freq: ONCE Status: Complete Protocol: Document 11/12/20 09:49 [facility] (Rec: 11/12/20 10:02 [facility] [id number]) Rehab OT IP Assessment Subjective History Pt oriented x 2 on arrival. Pt resting in bed on bi-pap. Pt agreeable to engage in therapy evaluation. Pt was admitted via ED on 11/11/20 due to acute exacerbation of chronic obstructive airway disease. Pt has a past medical history of Chronic Obstructive Pulmonary Disease (COPD), Gastroesophageal Reflux Disease(GERD), Hyperlipidemia. Pr reports prior to being in the hospital she lives at home with her daughter. Her daughter assists with ADLs and she is dependent upon her daughter for completion of all IADLs. Pt reports she did use a walker. Subjective I need help. Objective Patient Orientation Person,Birthday Upper Extremity Gross ROM WFL Bed Mobility bed mobility-scooting,bed mobility - supine/sit,bed mobility - rolling Assist Level Minimal x 1 (25% assist) Transfer Training Sit/Stand Transfer Assist Level Contact Guard/Hand Hold Chair Transfer Ability Contact Guard/Hand Hold Chair Transfer Technique Sit to/from Ambulatory Rehab OT IP prob,goals,plan Problems Date of Evaluation: 11/12/20 OT IP Problems Bed Mobility,Transfers,Gait, Balance,Self care,Safety Rehab Potential Rehab Potential Good Equipment Needs Assistive Devices Rolling / Wheeled Walker Plan OT intervention Plan Bed Mobility,Transfers,Gait, Balance,Self care,Safety, Therapeutic Exercise OT Plan Frequency BID Duration LOS Discharge Goals Bed Mobility Ability Standby Assistance Sit to Stand Chair Transfer Ability Supervision/Stand by Chair Transfer Ability Supervision/Stand by Chair Transfer Technique Sit to/from Ambulatory Chair Transfer Assistive Devices Rolling Walker Feeding Ability Assist wi
--- NOTE | 2020-11-12 11:19 | HMH.PTEV ---
Physical Therapy Evaluation Rehab PT IP Evaluation Start: 11/12/20 07:58 Freq: ONCE Status: Active Protocol: Document 11/12/20 11:00 [facility] (Rec: 11/12/20 11:19 [facility] [id number]) Subjective/History History History Ms. Pang is an 85-year-old female with chronic hypoxemic respiratory failure (end-stage COPD) on 3-4 L nasal cannula at home. She was brought to the ER via EMS due to worsening confusion, tremor, hypoxia at home. Subjective Subjective Pt on Bi-Pap in chair upon entering room - pt reports willing to answer questions and participate Rehab PT IP Eval Objective Appearance Patient Behavior Cooperative,Fatigued Patient Orientation Name,Birthday,Year,Situation Difficulty following instructions none Speech Pattern Soft-Spoken Ambulation Patient Able to Ambulate Yes Ambulation Observation IP General Gait Pattern Observation Shuffling Step Ambulation Distance (feet) 1 Ambulation Assistive Device None Ambulation Ability Contact Guard/Hand Hold Balance Ability to Arise Able, uses arms to help Sitting Balance Steady, safe Standing Balance Unsteady Dynamic Sitting Balance Ability Fair Dynamic Standing Balance Ability Poor Transfers Chair Transfer Ability Supervision/Stand by,Contact Guard/Hand Hold Sit to Stand Bed Transfer Ability Contact Guard/Hand Hold Sit to Stand Chair Transfer Ability Contact Guard/Hand Hold ROM All Extremities PT ROM Status WFL MMT All Extremities PT MMT WFL Rehab PT IP prob,goals,plan Problems Date of Evaluation: 11/12/20 PT IP Problems Bed Mobility,Transfers,Gait, Self care,Safety Rehab Potential Rehab Potential Poor Equipment Needs Assistive Devices Rolling / Wheeled Walker Plan PT Intervention Plan Bed Mobility,Transfers,Gait, Balance,Self care,Safety, Therapeutic Exercise PT Plan Frequency BID Duration LOS Discharge Goals Sit to Stand Chair Transfer Ability Contact Guard/Hand Hold Ambulation Assistive Device Rolling Walker Ambulation Distance (feet) 2 Discharge Plan PT Discharge Plan Pt could benefit from skilled therapy at SNF for rehab to
--- NOTE | 2020-11-12 14:27 | PC.NURSE ---
Pt has been on BIPAP majority of shift, she was taken off of BIPAP to non-rebreather to allow her to eat lunch today. Cont pulse ox in place per protocol. SPO2 has ranged from 90-96% while on BIPAP. Lungs diminished throughout. Abdomen soft, non-tender w/ active BS in all quads. She ate about 25% of her lunch tray, reports poor appetite. Gray cath to drain @ bedside w/ clear isabel urine. No BM this shift. Pt worked w/ PO/OT today, tolerated well. No complaints voiced. Family currently @ bedside. Call madisyn w/in reach.
[2020-11-13] VITALS (9 sets, daily range): BP systolic 123–150; BP diastolic 64–97; PULSE 62–105; RESP 18–23; TEMP 36.5–37.4; O2SAT 87–92; BMI 32.8
--- NOTE | 2020-11-13 03:54 | PC.NURSE ---
Pt has not slept well this shift. Has been awake most of night. Has tolerated trilogy fair this shift. Oral care provided. VSS. F/C draining to bedside. No complaints stated. Will continue to monitor.
[2020-11-13 05:41] LABS: Basophils % 0.1 % (0.1-2.0); Hematocrit 36.5 % (37.0-47.0); Hemoglobin 11.2 g/dL (12.2-16.2); Lymphocytes # 0.3 K/mm3 (0.7-4.5); Lymphocytes % 5.9 % (10-50); Mean Corpuscular HGB Conc 30.7 g/dL (31.8-35.4); Mean Corpuscular Hemoglobin 29.4 pg (27.0-31.2); Mean Corpuscular Volume 95.8 fl (81-99); Mean Platelet Volume 8.3 fl (7.4-10.4); Monocytes # 0.2 K/mm3 (0.1-1.0); Monocytes % 3.9 % (1.7-9.3); Neutrophils # 5.2 K/mm3 (1.8-7.8); Neutrophils % 90.1 % (37.0-80.0); Platelet Count 202 K/mm3 (142-424); Red Cell Distribution Width 13.5 % (11.5-17.5); White Blood Count 5.8 K/mm3 (4.8-10.8)
[2020-11-13 05:49] LABS: MANUAL DIFFERENTIAL MANUAL DIFFERENTIAL (MANUAL DIFF)
[2020-11-13 05:51] LABS: Alanine Aminotransferase 27 U/L (12-78); Albumin Level 3.7 g/dl (3.5-5.0); Albumin/Globulin Ratio 1.2 (1.1-1.8); Alkaline Phosphatase 52 U/L (38-126); Aspartate Amino Transferase 31 U/L (14-36); Bilirubin,Total 0.5 mg/dl (0.2-1.3); Blood Urea Nitrogen 27 mg/dl (7-17); Calcium 9.5 mg/dl (8.4-10.2); Chloride 100 mmol/L (98-107); Creatinine Clearance Estimated 54 mL/min (50-200); Estimated Glomerular Filt Rate 79 ml/min (>60); GFR (African American) 96 ML/MIN (>60); Globulin 3.1 g/dL (1.3-3.2); Glucose 149 mg/dl (74-100); Potassium 4.6 mmoL/L (3.5-5.1); Sodium 146 mmol/L (136-145); Total Protein,Serum 6.8 g/dl (6.3-8.2)
[2020-11-13 06:21] LABS: Hypochromasia 3+; Lymphocytes % 8 % (10-50); Monocytes % 3 % (2-9); Neutrophils % 89 % (42-76); Platelet Estimate Normal; Total Cells Counted 100
[2020-11-13 07:12] LABS: Anion Gap 8.6 mEq/L (5-15)
[2020-11-13 07:13] LABS: Carbon Dioxide 42 mmol/L (22.0-30.0)
--- NOTE | 2020-11-13 08:00 | PC.NURSE ---
Pt c/o being SOA on 3.5 L O2/nasal cannla, SPO2 low 90's. RT called to place pt back on trilogy.
--- NOTE | 2020-11-13 08:15 | HMH.ACPN2 ---
Internal Medicine - PN: Subj *Date: 11/13/20 *Time: 08:15 Interval history: Patient remains exceedingly weak, has done well with the trilogy device overnight. Has had some episodes of confusion. Exam Vital signs and Labs for Last 24 Hours: Temp Pulse Resp BP Pulse Ox 97.8 F 84 22 142/64 H 91 L 11/13/20 04:00 11/13/20 06:36 11/13/20 04:00 11/13/20 04:00 11/13/20 06:36 Laboratory Results - last 24 hr 11/12/20 06:13: Total Counted 100, Neutrophils % (Manual) 94 H, Lymphocytes % (Manual) 3 L, Monocytes % (Manual) 3, Platelet Estimate Normal, Hypochromasia 2+, Macrocytosis 1+ 11/13/20 05:09: WBC 5.8, RBC 3.80 L, Hgb 11.2 L, Hct 36.5 L, MCV 95.8, MCH 29.4, MCHC 30.7 L, RDW 13.5, Plt Count 202, MPV 8.3, Neut % (Auto) 90.1 H, Lymph % (Auto) 5.9 L, [place] % (Auto) 3.9, Eos % (Auto) 0.0 L, Baso % (Auto) 0.1, Neut # (Auto) 5.2, Lymph # (Auto) 0.3 L, [place] # (Auto) 0.2, Eos # (Auto) 0.0, Baso # (Auto) 0.0, Total Counted 100, Neutrophils % (Manual) 89 H, Lymphocytes % (Manual) 8 L, Monocytes % (Manual) 3, Platelet Estimate Normal, Hypochromasia 3+ 11/13/20 05:09: Sodium 146 H, Potassium 4.6, Chloride 100, Carbon Dioxide 42 H*, Anion Gap 8.6, BUN 27 H, Creatinine 0.70, Estimated Creat Clear 54, Estimated GFR 79, Est GFR ( Amer) 96, Glucose 149 H, Calcium 9.5, Total Bilirubin 0.5, AST 31, ALT 27, Alkaline Phosphatase 52, Total Protein 6.8, Albumin 3.7, Globulin 3.1, Albumin/Globulin Ratio 1.2 I & O for Last 24 hours: Intake & Output 11/10/20 11/11/20 11/12/2029/21 11:59 11:59 11:59 11:59 Intake Total 1300 / 1300 924 / 924 2148 Output Total 2124 / 2124 Balance 1300 / 1300 -1201 / -1201 2148 Weight 180 lb 1.883 oz 184 lb 15.485 oz 185 lb 3.013 oz Microbiology Reports for the Last 24 Hours: Microbiology 11/11/20 02:50 Blood Blood Culture - Preliminary 11/11/20 02:50 Blood Blood Culture - Preliminary NO GROWTH AFTER 48 HOURS Narrative: Patient is wearing the trilogy mask, appears comfortable. No significant vital sign derangements. O2 saturations in the low 90% range. Poor air movement in her lungs with some rhonchi. Heart rate regular. Abdomen soft. Moving all extremities. Assessment and Plan (1) Acute on chronic respiratory failure with hypercapnia Status: Acute Category: Medical Code(s): J96.22 - Acute and chronic respiratory failure with hypercapnia (2) Anemia Status: Acute Category: Medical Code(s): D64.9 - Anemia, unspecified (3) Hypernatremia Status: Acute Category: Medical Code(s): E87.0 - Hyperosmolality and hypernatremia (4) COPD (chronic obstructive pulmonary disease) Status: Acute Category: Medical Code(s): J44.9 - Chronic obstructive pulmonary disease, unspecified (5) Essential hypertension Status: Chronic Category: Medical Code(s): I10 - Essential (primary) hypertension (6) Class 1 obesity Status: Chronic Category: Medical Code(s): E66.9 - Obesity, unspecified - Assessment and plan all Dx Assessment and Plan for all problems:: Slight improvement. Significant weakness. PT has recommended the patient be a good candidate for a skilled care rehab facility. I agree given her significant weakness, need for ongoing oxygen monitoring. Patient herself is adamant that she must go home. We will discuss case with her family and make a referral to skilled care facility.
[2020-11-13 08:30] LABS: ABG Base Excess 13.3 mmol/L (-2.4-2.3); ABG HCO3 38.1 mmhg (22.0-26.0); ABG Oxygen Saturation 67 % (90-100)
[2020-11-13 08:31] LABS: Oxygen 3L %
[2020-11-13 08:32] LABS: ABG PCO2 62.3 mmhg (35.0-45.0); Allen's Test Acceptable; Source Right Radial
[2020-11-13 08:33] LABS: ABG PO2 30.4 mmhg (80-100)
--- NOTE | 2020-11-13 14:09 | SW/DCPLANNER ---
Addendum entered by Mari Engle 11/18/20 12:59: PATIENT REMAINS IN THE ACUTE HOSPITAL AND NOT ABLE TO DISCHARGE AT THIS TIME...SHE WAS ACCEPTED TO [facility] BUT DR BAR STATED HE IS NOT SURE IF THAT IS THE APPROPRIATE LEVEL OF CARE AT THIS TIME... HE IS GOING TO SPEAK WITH THE FAMILY AND PRESENT OTHER OPTIONS TO SEE WHAT THEY WISH TO DO ALONE WITH PATIENT... Addendum entered by Mari Engle 11/17/20 11:22: PATIENT DISCHARGING TO [facility] TODAY FOR SKILLED REHAB SERVICES... PATIENT HAS CONVERTED FROM A TRILOGY DEVICE TO BIPAP.. Addendum entered by Mari Engle 11/14/20 14:47: PATIENT HAS BEEN ACCEPTED TO [facility] WHEN MEDICALLY STABLE....HAVE ATTEMPTED TO NOTIFY DAUGHTER AND COULD NOT LEAVE HER A VOICE MESSAGE.. DID CALL THE NURSE CARING FOR THIS PATIENT TO LET DAUGHTER KNOW IF SHE COMES BACK THIS AFTERNOON.... Original Note: PER DAUGHTER REQUEST SHE ASKED FOR THIS PATIENTS INFORMATION TO BE SENT TO [facility] FOR A SHORT TERM SKILLED REHAB STAY. I DID MAKE CONTACT AND SPOKE WITH SHANIKA AND FAXED PATIENT INFORMATION, I ALSO SENT A MESSAGE TO DR BAR AND ASKED IF ACCEPTED THERE WOULD HE ACCEPT HER AND HE AGREED.. SHE MAY BE READY SOON [facility] OR THE NEXT OR SO....
--- NOTE | 2020-11-13 19:59 | PC.NURSE ---
Pt had been very restless today, intermittent confusion noted throughout shift. Has been on BIPAP majority of today to maintain sat > 90%. Lungs diminished throughout. HR regular. Abdomen soft, non-tender w/ active BS in all quads. Gray cath to drain @ bedside. No BM this shift. Skin remains intact. Pt has been turned Q2H, but is able to turn and reposition herself well in the bed independently. Grandson have been @ bedside periodically today. Grandson's name is Phil Wallis, gives permission for staff to contact him for pt needs, cell phone# [phone] Since this afternoon pt has been resting comfortably. No complaints voiced. Call madisyn w/in reach.
[2020-11-14] VITALS (11 sets, daily range): BP systolic 124–158; BP diastolic 64–87; PULSE 72–94; RESP 20–28; TEMP 36.6–37; O2SAT 86–93
[2020-11-14 07:05] LABS: Basophils % 0.1 % (0.1-2.0); Hematocrit 38.8 % (37.0-47.0); Hemoglobin 11.8 g/dL (12.2-16.2); Lymphocytes # 0.3 K/mm3 (0.7-4.5); Lymphocytes % 8.2 % (10-50); Mean Corpuscular HGB Conc 30.5 g/dL (31.8-35.4); Mean Corpuscular Hemoglobin 28.9 pg (27.0-31.2); Mean Corpuscular Volume 94.9 fl (81-99); Mean Platelet Volume 8.3 fl (7.4-10.4); Monocytes # 0.2 K/mm3 (0.1-1.0); Monocytes % 5.2 % (1.7-9.3); Neutrophils # 3.4 K/mm3 (1.8-7.8); Neutrophils % 86.6 % (37.0-80.0); Platelet Count 186 K/mm3 (142-424); Red Blood Count 4.08 M/mm3 (4.20-5.40); Red Cell Distribution Width 13.7 % (11.5-17.5); White Blood Count 3.9 K/mm3 (4.8-10.8)
[2020-11-14 07:06] LABS: MANUAL DIFFERENTIAL MANUAL DIFFERENTIAL (MANUAL DIFF)
[2020-11-14 07:21] LABS: Blood Urea Nitrogen 30 mg/dl (7-17); Calcium 9.7 mg/dl (8.4-10.2); Chloride 100 mmol/L (98-107); Creatinine Clearance Estimated 54 mL/min (50-200); Estimated Glomerular Filt Rate 79 ml/min (>60); GFR (African American) 96 ML/MIN (>60); Glucose 133 mg/dl (74-100); Potassium 4.6 mmoL/L (3.5-5.1); Sodium 146 mmol/L (136-145)
[2020-11-14 07:30] LABS: Anion Gap 8.6 mEq/L (5-15); Carbon Dioxide 42 mmol/L (22.0-30.0)
--- NOTE | 2020-11-14 08:40 | HMH.ACPN2 ---
Internal Medicine - PN: Subj *Date: 11/14/20 *Time: 14:38 Interval history: Patient was intolerant of trilogy device overnight. Difficulty maintaining adequate oxygen saturation. Had to transition over to hospital BiPAP. Tolerated much better with stable saturations above 88%. Pleasant and oriented to person and place on exam this morning. Transition to nasal cannula oxygen with stable saturations. Tolerating p.o. intake. Remains afebrile. denies nausea, emesis. Exam Vital signs and Labs for Last 24 Hours: Temp Pulse Resp BP Pulse Ox 97.9 F 74 20 151/84 H 90 L 11/14/20 07:51 11/14/20 07:51 11/14/20 07:51 11/14/20 07:51 11/14/20 07:51 Laboratory Results - last 24 hr 11/14/20 06:35: WBC 3.9 L D, RBC 4.08 L, Hgb 11.8 L, Hct 38.8, MCV 94.9, MCH 28.9, MCHC 30.5 L, RDW 13.7, Plt Count 186, MPV 8.3, Neut % (Auto) 86.6 H, Lymph % (Auto) 8.2 L, [place] % (Auto) 5.2, Eos % (Auto) 0.0 L, Baso % (Auto) 0.1, Neut # (Auto) 3.4, Lymph # (Auto) 0.3 L, [place] # (Auto) 0.2, Eos # (Auto) 0.0, Baso # (Auto) 0.0 11/14/20 06:35: Sodium 146 H, Potassium 4.6, Chloride 100, Carbon Dioxide 42 H*, Anion Gap 8.6, BUN 30 H, Creatinine 0.70, Estimated Creat Clear 54, Estimated GFR 79, Est GFR ( Amer) 96, Glucose 133 H, Calcium 9.7 I & O for Last 24 hours: Intake & Output 11/11/20 11/12/20 11/13/20 11/14/20 23:59 23:59 23:59 23:59 Intake Total 1300 / 1300 1955 / 1955 1873 / 1873 903 / 903 Output Total 1725 / 1725 400 / 400 1700 / 1700 400 / 400 Balance -425 / -425 1555 / 1555 173 / 173 503 / 503 Weight 81.7 kg 83.9 kg 84 kg Microbiology Reports for the Last 24 Hours: Microbiology 11/11/20 02:50 Blood Blood Culture - Preliminary Staphylococcus hominis - Constitutional mild distress, obese, chronically ill appearing - *Routine HEENT Exam Head: Present: normocephalic Eye: Present: EOMI, PERRL ENT: Present: mucous membranes moist - *Routine Neck Exam Present: supple. Absent: lymphadenopathy - *Routine Respiratory Exam Present: crackles (bilateral bases), diminished air movement - *Routine Cardiovascular Exam Present: RRR - *Routine Abdominal Exam Present: soft, normoactive bowel sounds. Absent: tenderness - *Routine Extremities Exam Present: edema (1+ BLE). Absent: cyanosis, clubbing - *Routine Skin Exam Present: warm. Absent: rash - *Routine Neurological Exam Present: alert Assessment and Plan (1) Acute on chronic respiratory failure with hypercapnia Status: Acute Category: Medical Code(s): J96.22 - Acute and chronic respiratory failure with hypercapnia (2) Anemia Status: Acute Category: Medical Code(s): D64.9 - Anemia, unspecified (3) Hypernatremia Status: Acute Category: Medical Code(s): E87.0 - Hyperosmolality and hypernatremia (4) COPD (chronic obstructive pulmonary disease) Status: Acute Category: Medical Code(s): J44.9 - Chronic obstructive pulmonary disease, unspecified (5) Essential hypertension Status: Chronic Category: Medical Code(s): I10 - Essential (primary) hypertension (6) Class 1 obesity Status: Chronic Category: Medical Code(s): E66.9 - Obesity, unspecified - Assessment and plan all Dx Assessment and Plan for all problems:: 85-year-old female with acute on chronic hypoxemic and hypercapnic respiratory failure. Responding well to current regimen of antibiotics. Unfortunately having difficulty transitioning to overnight bilevel support. Still necessitating BiPAP in the hospital. Remains afebrile. Significant weakness. PT has recommended the patient be a good candidate for a skilled care rehab facility. I agree given her significant weakness, need for ongoing oxygen monitoring. We will continue PT while admitted We will contact [facility] to assist with adjustment of overnight respiratory support device to monitor and assess for tolerance prior to discharge. At this time patient is not on a sta
[2020-11-14 08:57] LABS: Lymphocytes % 10 % (10-50); Monocytes % 2 % (2-9); Neutrophils % 88 % (42-76); Platelet Estimate Normal; RBC Morphology Normal; Total Cells Counted 100
--- NOTE | 2020-11-14 17:00 | DIET.NUTRFU ---
Addendum entered by Sierra Chandler 11/19/20 13:01: Continues with PO intakes 25%, she refuses nutritional supplements of any kind despite education on importance nutrition. BG avg. 140. Continuing to educate and encourage pt to increase intakes. Continued excellent efforts encouragement/cueing at meal times appreciated, pt may have additional snacks/supplements by request/RN offer. Original Note: Pt has refused most nourishment t/o stay dt trilogy use/SOA when eating. She was able to eat 25% of lunch today and has had some ensure though she does not like it, altered to Breeze on diet order BID. BG have been slightly elevated: 130-166, weight stable, no BM past 48h, Na continues to be high. 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 Pt may have additional supplements as requested/by RN offer, please encourage/cue at meal times and offer supplements t/o day when pt is able.
--- NOTE | 2020-11-14 21:30 | PC.NURSE ---
PT IS RESTING IN BED WITH BIPAP ON AT THIS TIME. PT HAS REQUIRED BIPAP ALL SHIFT. PT STATES SHE FEELS HUNGRY BUT DUE TO SOA PT COULD ONLY TOLERATE A FEW BITES OF JELLO AND A FEW SIPS OF WATER EACH MEAL TIME. WHEN BIPAP WAS REMOVED THIS MORNING O2 SATURATION DROPPED TO THE 60'S LESS THAN 10 MIN ON 3.5 L NC. T/O THE SHIFT WITH BIPAP O2 SATURATION HAS MAINTAINED 86-90%. SORRELS ARRIVED TO CHANGE TRILOGY SETTINGS. LUNG SOUNDS DIMINISHED WITH SCATTERED WHEEZES. ABDOMEN SOFT/NON TENDER WITH ACTIVE BOWEL SOUNDS. PT HAD 2 BOWEL MOVEMENTS THIS SHIFT. PT NEEDS TO BE ENCOURAGED TO TURN AND REPOSITION IN BED. PT HAS BEEN ALERT AND ORIENTED X3 T/O THE SHIFT. REPORT HAND OFF TO REMI CHRISTIANSON RN
--- NOTE | 2020-11-14 22:11 | PC.NURSE ---
PT IS ON HOME RESMED BIPAP WITH 8LPM OF O2 BLED IN. PT SATS ARE 86%-88%.
[2020-11-15] VITALS (12 sets, daily range): BP systolic 134–162; BP diastolic 71–87; PULSE 62–115; RESP 20–26; TEMP 36.3–36.9; O2SAT 24–90; BMI 33.2
--- NOTE | 2020-11-15 06:24 | PC.NURSE ---
pt has rested intermittently t/o shift, no complaints of pain this shift, balderrama draining clear yellow urine, pt on bipap at beginning of shift, changed to home resmed at approximately 2200 and remains on it currently
--- NOTE | 2020-11-15 08:14 | HMH.DCSUM ---
General - General Admission date:: 11/11/20 Discharge date: 11/15/20 HPI HPI: Ms. Pang is an 85-year-old female with chronic hypoxemic respiratory failure (end-stage COPD) on 3-4 L nasal cannula at home. She was brought to the ER last night via EMS due to worsening confusion, tremor, hypoxia at home. Per ER documentation and her granddaughter at bedside, patient's oxygen was turned up to 5 L and she was still satting in the 80s at best. When EMS arrived they put her on higher oxygen support with inability to get her above 90. Family and EMS convinced her to come to the ER for further evaluation. On arrival she was worked up for her respiratory failure. Initial labs concerning for hypercarbia, hypoxemia, and possible pneumonia on chest imaging. Patient additionally has history of hypertension, GERD, and former tobacco use. Patient more alert on interview this morning. CO2 has decreased from over 120 to the 90 range. Respiratory acidosis improving. Patient transition to nasal cannula for interview and able to answer questions though disoriented to place and time. Denies any pain. Still feels short of breath. Afebrile. Blood pressure stable. Family at bedside, updated on plan and diagnosis at this time. Hospital Course Hospital Course: Patient had a fairly lengthy hospital course, she was afflicted with significant ongoing acute on chronic respiratory failure. In talking with her family, she has been on oxygen therapy for several years and has had a stepwise decline over the past several weeks. She tolerated BiPAP fairly well, but was unable to be weaned back to her normal home nasal cannula because of significant hypercapnia and hypoxia. We were able to adapt her to a trilogy device and she tolerated this well over the last 24 hours. She was significantly weak both from ongoing respiratory failure as well as her hospital stay with deconditioning. PT evaluated her and felt that she would do well in a skilled care setting for at least 3 to 4 weeks of rehab. We were able to find a good skilled care placement for her at the [facility] and she will be transferred there today. Please note she will need the following orders. 1. She will be on the trilogy respiratory device with current settings chronically, except for eating and drinking. 2. She will need a CBC and a BMP on November 18. 3. She will continue p.o. antibiotics with azithromycin 250 mg daily for the next 4 days as well as levofloxacin 500 mg daily for the next 7 days. 4. PT/OT/speech therapy evaluation for deconditioning and skilled rehab respectively. 5. Other medications will be on discharge summary medication list. 6. We will follow her up on Dr. De La Cruz's care home rounds on November 19. Objective Vital signs: Temp Pulse Resp BP Pulse Ox 98.0 F 80 20 150/73 H 90 L 11/15/20 03:33 11/15/20 03:33 11/15/20 03:11/15/20 03:11/15/20 06:50 no acute distress Comments: Patient resting comfortably on trilogy device. When awakened she is alert and pleasant, able to speak in almost complete sentences, states she feels better. - *Routine HEENT Exam Head: Present: normocephalic Eye: Present: EOMI, PERRL ENT: Present: mucous membranes moist - *Routine Neck Exam Present: supple - *Routine Respiratory Exam Present: prolonged expiratory phase, rhonchi - *Routine Cardiovascular Exam Present: RRR - *Routine Abdominal Exam Present: soft, normoactive bowel sounds. Absent: tenderness - *Routine Extremities Exam Absent: cyanosis, clubbing, edema - *Routine Skin Exam Present: warm. Absent: rash - *Routine Neurological Exam Present: alert, oriented X3 Globally weak but no focal deficits. - Detailed Eye Exam Eyelids: Bilateral normal inspection Results Labs on day of discharge: Labs from last 24 hours 11/14/20 06:35 Total Counted 100 Neutrophils % (Manual
[2020-11-15 15:33] LABS: Vancomycin,Peak 22.3 ug/ml (11-39)
[2020-11-16] VITALS (11 sets, daily range): BP systolic 120–147; BP diastolic 55–72; PULSE 61–99; RESP 20–32; TEMP 36.7–37.3; O2SAT 86–96; BMI 33.2
--- NOTE | 2020-11-16 04:32 | PC.NURSE ---
pt A&O. Remains on Bipap throughout the night, has tolerated well. Gray draining clear yellow urine. No c/o pain this shift. IV patent, NS @ 75. VSS, call light in reach, no concerns at this time.
--- NOTE | 2020-11-16 08:02 | P.PN_ITS ---
Internal Medicine - PN: Subj *Date: 11/16/20 *Time: 08:02 Interval history: After initially agreeing on Tuesday and then telling me yesterday morning that she was ready to go to long-term care the patient had an abrupt and somewhat volatile change of mind and she and her family had quite a long discussion with our care management staff yesterday during which they vacillated between home care and going to [facility], finally, it was decided that after all that, the best course was what we had planned earlier which was go to [facility], but after the delay [facility] would not be able to take her till Tuesday. The patient is doing fairly well overnight, spent the night on BiPAP but is alert, and talkative this morning again agrees with me that she understands that she is going to [facility] on Tuesday. Exam Vital signs and Labs for Last 24 Hours: Temp Pulse Resp BP Pulse Ox 98.1 F 61 20 120/66 91 L 11/16/20 04:00 11/16/20 07:25 11/16/20 04:00 11/16/20 04:00 11/16/20 04:00 Laboratory Results - last 24 hr 11/15/20 10:35: Vancomycin Trough 8.0 11/15/20 15:10: Vancomycin Peak 22.3 I & O for Last 24 hours: Intake & Output 11/13/20 11/14/20 11/15/20 11/16/20 11:59 11:59 11:59 11:59 Intake Total 2149 / 2149 1658 / 1658 360 / 360 Output Total 2099 / 2100 1325 / 1325 700 / 700 Balance 2149 / 2148 -442 / -442 -965 / -965 -700 / -700 Weight 185 lb 3.013 oz 187 lb 6.287 oz 187 lb 6 oz Microbiology Reports for the Last 24 Hours: Microbiology 11/11/20 02:50 Blood Blood Culture - Final NO GROWTH AFTER 5 DAYS Narrative: On BiPAP, alert, nods yes and no appropriately. Lungs have rhonchi but fairly symmetric air entry. Abdomen soft. Heart rate regular, no edema. Gray catheter draining clear yellow urine. Assessment and Plan (1) Acute on chronic respiratory failure with hypercapnia Status: Chronic Category: Medical Code(s): J96.22 - Acute and chronic respiratory failure with hypercapnia (2) Anemia Status: Chronic Category: Medical Code(s): D64.9 - Anemia, unspecified (3) Hypernatremia Status: Resolved Category: Medical Code(s): E87.0 - Hyperosmolality and hypernatremia (4) COPD (chronic obstructive pulmonary disease) Status: Chronic Category: Medical Code(s): J44.9 - Chronic obstructive pulmonary disease, unspecified (5) Essential hypertension Status: Chronic Category: Medical Code(s): I10 - Essential (primary) hypertension (6) Class 1 obesity Status: Chronic Category: Medical Code(s): E66.9 - Obesity, unspecified - Assessment and plan all Dx Assessment and Plan for all problems:: No changes in management overnight. Follow-up tomorrow, plan for discharge tomorrow. Get Gray out today, try to advance activity as tolerated.
--- NOTE | 2020-11-16 10:51 | HMH.PHACONS ---
- Pharmacy Consult Date: 11/16/20 Time: 10:51 Referring provider: DR. RAUSCH Reason for Consult:: VANCOMYCIN LEVELS Allergies and ADEs:: Allergies Allergy/AdvReac Type Severity Reaction Status Date / Time cephalexin Allergy Intermediate Unknown Verified 11/11/20 08:06 allergy reaction Home Medications:: Home Medications Medication Instructions Recorded Confirmed Type losartan 100 mg tablet 50 mg PO DAILY 30 Days tab 08/09/17 11/11/20 History omeprazole 20 mg capsule,delayed 20 mg PO DAILY 30 Days #30 08/09/17 11/11/20 History release Multivitamin [Multivitamins] 1 tab PO DAILY 08/17/17 11/11/20 History Albuterol Sulfate [Albuterol 1 - 2 puff IH Q4HP PRN 11/11/20 11/11/20 History Sulfate Hfa] Fluticasone/Umeclidin/Vilanter 1 puff IH DAILY 11/11/20 11/11/20 History [Trelegy Ellipta 100-62.5-25] Azithromycin [Zithromax 250mg 250 mg PO DIRECTED #6 tab 11/15/20 Rx tab] levoFLOXacin [Levaquin 500mg 500 mg PO DAILY #7 tab 11/15/20 Rx tab] predniSONE [Deltasone 20mg 20 mg PO BID 7 Days #14 tab 11/15/20 Rx tablet] Height: 1.6 m Weight: 84.992 kg Laboratory Results:: Laboratory Results - last 24 hr 11/15/20 10:35: Vancomycin Trough 8.0 11/15/20 15:10: Vancomycin Peak 22.3 Medical History: Reports:: Chronic Obstructive Pulmonary Disease (COPD), Gastroesophageal Reflux Disease(GERD), Hyperlipidemia Denies:: Cancer, Diabetes Mellitus Type 1, Diabetes Mellitus Type 2, Internal Pacemaker, MRSA, Seizures Assessment and Plan (1) Acute on chronic respiratory failure with hypercapnia Status: Chronic Category: Medical Code(s): J96.22 - Acute and chronic respiratory failure with hypercapnia (2) Anemia Status: Chronic Category: Medical Code(s): D64.9 - Anemia, unspecified (3) Hypernatremia Status: Resolved Category: Medical Code(s): E87.0 - Hyperosmolality and hypernatremia (4) COPD (chronic obstructive pulmonary disease) Status: Chronic Category: Medical Code(s): J44.9 - Chronic obstructive pulmonary disease, unspecified (5) Essential hypertension Status: Chronic Category: Medical Code(s): I10 - Essential (primary) hypertension (6) Class 1 obesity Status: Chronic Category: Medical Code(s): E66.9 - Obesity, unspecified - Assessment and plan all Dx Assessment and Plan for all problems:: BASED ON PATIENT FACTORS AND VANCOMYCIN TROUGH AND PEAK LEVELS, RECOMMEND CONTINUING CURRENT DOSE OF VANCOMYCIN AT 1,500MG EVERY 24 HOURS. PHARMACY WILL CONTINUE TO MONITOR AND WILL ADJUST DOSE APPROPRIATE. -ARCELIA TINOCO, STUARTD
--- NOTE | 2020-11-16 18:14 | PC.NURSE ---
pt able to answer orientation questions appropriately, has remained on 4L NC t/o most of shift, O2 sats have been 85-95%, no complaints of SOA or pain
[2020-11-17] VITALS (10 sets, daily range): BP systolic 122–144; BP diastolic 56–86; PULSE 69–99; RESP 20–32; TEMP 36.6–37.1; O2SAT 83–95; BMI 35.7
--- NOTE | 2020-11-17 07:47 | PC.NURSE ---
pt alert and oriented. iv patent and infusing per order. vss. bipap used throughout the night. pt had a period of anxiety. fio2 was adjusted and pt felt better. no issues since. call light in reach. will continue to monitor
--- NOTE | 2020-11-17 08:46 | P.PN_ITS ---
Internal Medicine - PN: Subj *Date: 11/17/20 *Time: 08:46 Interval history: Overnight patient did well, continues require BiPAP at night but during the day goes to a nasal cannula. She is talkative, alert, and emphatically tells me I am not ready to go home. Exam Vital signs and Labs for Last 24 Hours: Temp Pulse Resp BP Pulse Ox 97.9 F 99 H 20 138/73 93 L 11/17/20 04:00 11/17/20 06:17 11/17/20 04:00 11/17/20 04:00 11/17/20 04:00 I & O for Last 24 hours: Intake & Output 11/14/20 11/15/20 11/16/20 11/17/20 11:59 11:59 11:59 11:59 Intake Total 1658 / 1658 360 / 360 240 / 240 1380 / 1380 Output Total 2100 / 2100 1325 / 1325 700 / 700 Balance -442 / -442 -965 / -965 -460 / -460 1380 / 1380 Weight 187 lb 6.287 oz 187 lb 6 oz 201 lb 9.6 oz Narrative: Alert, oriented x3. Lungs have rhonchi but fairly good air entry. Patient remains globally weak. Heart rate regular. Abdomen soft and nontender. No focal neurologic deficits. Assessment and Plan (1) Acute on chronic respiratory failure with hypercapnia Status: Chronic Category: Medical Code(s): J96.22 - Acute and chronic respiratory failure with hypercapnia (2) Anemia Status: Chronic Category: Medical Code(s): D64.9 - Anemia, unspecified (3) Hypernatremia Status: Resolved Category: Medical Code(s): E87.0 - Hyperosmolality and hypernatremia (4) COPD (chronic obstructive pulmonary disease) Status: Chronic Category: Medical Code(s): J44.9 - Chronic obstructive pulmonary disease, unspecified (5) Essential hypertension Status: Chronic Category: Medical Code(s): I10 - Essential (primary) hypertension (6) Class 1 obesity Status: Chronic Category: Medical Code(s): E66.9 - Obesity, unspecified - Assessment and plan all Dx Assessment and Plan for all problems:: Overall patient has improved. We will check with intermediate about using BiPAP at night. Patient otherwise is an excellent candidate for ongoing skilled care. I discussed with patient her overall declining status with her emphysema. She informs me that she does not wish to be intubated should that need arise, we will reflect this on her paperwork, and I feel that she can safely be discharged to the intermediate today if they are able to do BiPAP at night.
[2020-11-17 11:06] LABS: Chloride 102 mmol/L (98-107); Sodium 146 mmol/L (136-145)
[2020-11-17 11:07] LABS: Potassium 4.2 mmoL/L (3.5-5.1)
[2020-11-17 11:09] LABS: Blood Urea Nitrogen 26 mg/dl (7-17); Creatinine Clearance Estimated 58 mL/min (50-200); Estimated Glomerular Filt Rate 95 ml/min (>60); GFR (African American) 115 ML/MIN (>60)
[2020-11-17 11:10] LABS: Calcium 8.5 mg/dl (8.4-10.2); Glucose 152 mg/dl (74-100)
[2020-11-17 11:17] LABS: Anion Gap 5.2 mEq/L (5-15)
[2020-11-17 11:22] LABS: Carbon Dioxide 43 mmol/L (22.0-30.0)
[2020-11-17 11:29] LABS: Vancomycin,Trough 9.1 ug/mL (5.0-10.0)
--- NOTE | 2020-11-17 15:46 | PC.NURSE ---
PT IS RESTING IN BED. NO COMPLAINTS OF DISCOMFORT. PT HAS TOLERATED VERY MINIMAL TIME W/O BIPAP THIS SHIFT. CARE MANAGEMENT STATED [facility] WAS OKAY WITH MANAGING PT ON THE BIPAP HOWEVER AT 1515 DEREJE FROM [facility] CALLED AND STATED SINCE THE BIPAP STILL HAS NOT ARRIVED TO THEIR FACILITY THEY WOULD NOT BE ABLE TO TAKE PT UNTIL IN THE MORNING. NOTIFIED VIRGINIE MENESES FROM CARE MANAGEMENT AND . O2 SATURATION DROPPED TO 65% WHILE TRANSPORTING FROM BED TO BSC ON 4 L NC. NOTIFIED AND HE STATED FOR PT TO GO BACK ON THE BIPAP. O2 SATURATION MAINTAINS 85-92% ON BIPAP. WHEN PT IS ON BIPAP SHE DOES NOT APPEAR TO BE IN ANY DISTRESS. LUNG SOUNDS HAVE SCATTERED WHEEZES. ABDOMEN SOFT/NON TENDER WITH ACTIVE BOWEL SOUNDS. PT HAS BEEN USING THE BEDPAN/BSC TO VOID HOWEVER WHEN PT GOT UP TO THE BSC SHE STATED I'M NOT GETTING ENOUGH AIR . FAMILY STATED THAT THEY WANTED PT TO GO TO [facility]. VIRGINIE MENESES CALLED AND SHE CAME TO TALK WITH FAMILY AT BEDSIDE. CODE STATUS WAS DISCUSSED WITH FAMILY AND PT AND PT HAS DECIDED THAT SHE DOES WANT TO BE A DNR.
[2020-11-18] VITALS (10 sets, daily range): BP systolic 113–159; BP diastolic 56–90; PULSE 67–96; RESP 11–34; TEMP 36.8–37.9; O2SAT 86–96; BMI 35.6
--- NOTE | 2020-11-18 01:41 | PC.NURSE ---
She is A&Ox3. She has been wearing the bipap @ 50% FiO2 since shift change. She received PRN medication for pain.
--- NOTE | 2020-11-18 07:57 | CT_ITS ---
PROCEDURE: CT ANGIO CHEST PE PROTOCOL CLINCIAL INDICATION: difficulty weaning respiratory support Shortness of air COMPARISON: CT CT ANGIO CHEST PE PROTOCOL from 11/11/2020 TECHNIQUE: IV Contrast: 70ML Isovue 370 Axial images obtained with sagittal and coronal reformats. All CT scans at the facility use one or more dose reduction, viz: automated exposure control, ma/kV adjustment per patient size (including targeted exams where dose is matched to indication, i.e. head), or iterative reconstruction technique. FINDINGS: HEART AND MEDIASTINAL STRUCTURES: No evidence of pulmonary embolus, aortic aneurysm, or aortic dissection. Cardiomegaly LUNGS AND PLEURAL SPACES: Increase in bilateral lower lobe volume loss/consolidation now with near complete collapse of the left lower lobe. There are small bilateral pleural effusions which have slightly increased in volume. BONY STRUCTURES: No acute bony abnormalities apparent. UPPER ABDOMEN: Medium-sized hiatal hernia ADDITIONAL FINDINGS: No other significant abnormalities. IMPRESSION: 1. No evidence of pulmonary embolus. 2. Increase in bilateral lower lobe volume loss now with near complete collapse of the left lower lobe with slight increase in size of the small bilateral pleural effusions. Dictated by: Torey Pascual MD 11/18/2020 09:10 Torey Pascual MD in [place] 11/18/2020 09:10
[2020-11-18 09:09] LABS: Alanine Aminotransferase 43 U/L (12-78); Albumin Level 3.1 g/dl (3.5-5.0); Albumin/Globulin Ratio 1.2 (1.1-1.8); Alkaline Phosphatase 37 U/L (38-126); Aspartate Amino Transferase 26 U/L (14-36); Bilirubin,Total 0.6 mg/dl (0.2-1.3); Blood Urea Nitrogen 25 mg/dl (7-17); Calcium 8.4 mg/dl (8.4-10.2); Chloride 96 mmol/L (98-107); Creatinine Clearance Estimated 58 mL/min (50-200); Estimated Glomerular Filt Rate 79 ml/min (>60); GFR (African American) 96 ML/MIN (>60); Globulin 2.5 g/dL (1.3-3.2); Glucose 142 mg/dl (74-100); Magnesium 1.7 mg/dl (1.6-2.3); Potassium 4.3 mmoL/L (3.5-5.1); Sodium 145 mmol/L (136-145); Total Protein,Serum 5.6 g/dl (6.3-8.2)
[2020-11-18 09:17] LABS: Basophils % 0.2 % (0.1-2.0); Eosinophils % 0.1 % (0.1-12.0); Hematocrit 37.7 % (37.0-47.0); Hemoglobin 11.2 g/dL (12.2-16.2); Lymphocytes # 0.2 K/mm3 (0.7-4.5); Lymphocytes % 5.4 % (10-50); Mean Corpuscular HGB Conc 29.7 g/dL (31.8-35.4); Mean Corpuscular Hemoglobin 29.2 pg (27.0-31.2); Mean Corpuscular Volume 98.2 fl (81-99); Mean Platelet Volume 8.7 fl (7.4-10.4); Monocytes # 0.3 K/mm3 (0.1-1.0); Neutrophils # 3.8 K/mm3 (1.8-7.8); Neutrophils % 88.3 % (37.0-80.0); Platelet Count 149 K/mm3 (142-424); Red Blood Count 3.84 M/mm3 (4.20-5.40); Red Cell Distribution Width 13.5 % (11.5-17.5); White Blood Count 4.3 K/mm3 (4.8-10.8)
[2020-11-18 09:21] LABS: MANUAL DIFFERENTIAL MANUAL DIFFERENTIAL (MANUAL DIFF)
--- NOTE | 2020-11-18 09:23 | HMH.ACPN2 ---
Internal Medicine - PN: Subj *Date: 11/18/20 *Time: 18:00 Interval history: Pt has continued to require more or less continuous BiPAP to maintain adequate O2 saturations. Pleasant on interview this morning. Oriented to person and place. Wanting something to eat or drink. Inadequate response to current p.o. diuretic. Given continued prolonged necessity of BiPAP, repeat CT ordered for today. Additionally discussed goals of care with patient this morning. She is not at this time interested in hospice. Also discussed CODE STATUS, she is clear that she wants to be a DNR and wants to be allowed to pass naturally if her heart were to stop or she were to stop breathing. Denies chest pain, palpitations, nausea or vomiting. Continues to require significant assistance to get up out of bed. Rapidly desaturates with exertion Exam Vital signs and Labs for Last 24 Hours: Temp Pulse Resp BP Pulse Ox 98.3 F 87 18 113/56 L 91 L 11/18/20 04:00 11/18/20 06:25 11/18/20 04:00 11/18/20 04:00 11/18/20 04:00 Laboratory Results - last 24 hr 11/17/20 10:43: Vancomycin Trough 9.1 11/17/20 10:43: Sodium 146 H, Potassium 4.2, Chloride 102, Carbon Dioxide 43 H*, Anion Gap 5.2, BUN 26 H, Creatinine 0.60, Estimated Creat Clear 58, Estimated GFR 95, Est GFR ( Amer) 115, Glucose 152 H, Calcium 8.5 11/18/20 08:52: WBC 4.3 L, RBC 3.84 L, Hgb 11.2 L, Hct 37.7, MCV 98.2, MCH 29.2, MCHC 29.7 L, RDW 13.5, Plt Count 149, MPV 8.7, Neut % (Auto) 88.3 H, Lymph % (Auto) 5.4 L, [place] % (Auto) 6.0, Eos % (Auto) 0.1, Baso % (Auto) 0.2, Neut # (Auto) 3.8, Lymph # (Auto) 0.2 L, [place] # (Auto) 0.3, Eos # (Auto) 0.0, Baso # (Auto) 0.0 I & O for Last 24 hours: Intake & Output 11/15/20 11/16/20 11/17/20 11/18/20 23:59 23:59 23:59 23:59 Intake Total 600 / 600 1500 / 1500 10 / 10 Output Total 1200 / 1200 0 / 0 Balance -1200 / -1200 600 / 600 1500 / 1500 10 / 10 Weight 85 kg 84.992 kg 91.444 kg 91.285 kg - Constitutional mild distress, obese, chronically ill appearing - *Routine HEENT Exam Head: Present: normocephalic Eye: Present: EOMI, PERRL ENT: Present: mucous membranes moist - *Routine Neck Exam Present: supple. Absent: lymphadenopathy - *Routine Respiratory Exam Present: crackles (BLL), distant breath sounds, diminished air movement - *Routine Cardiovascular Exam Present: RRR, murmur - *Routine Abdominal Exam Present: soft, normoactive bowel sounds. Absent: tenderness - *Routine Extremities Exam Absent: cyanosis, clubbing, edema - *Routine Skin Exam Present: warm. Absent: rash - *Routine Neurological Exam Present: alert Assessment and Plan (1) Acute on chronic respiratory failure with hypercapnia Status: Chronic Category: Medical Code(s): J96.22 - Acute and chronic respiratory failure with hypercapnia (2) Anemia Status: Chronic Category: Medical Code(s): D64.9 - Anemia, unspecified (3) Hypernatremia Status: Resolved Category: Medical Code(s): E87.0 - Hyperosmolality and hypernatremia (4) COPD (chronic obstructive pulmonary disease) Status: Chronic Qualifiers: COPD type: COPD with acute exacerbation Qualified Code(s): J44.1 - Chronic obstructive pulmonary disease with (acute) exacerbation Category: Medical Code(s): J44.9 - Chronic obstructive pulmonary disease, unspecified (5) Essential hypertension Status: Chronic Category: Medical Code(s): I10 - Essential (primary) hypertension (6) Class 1 obesity Status: Chronic Category: Medical Code(s): E66.9 - Obesity, unspecified - Assessment and plan all Dx Assessment and Plan for all problems:: 85yo F with AoC hypoxemic and hypercarbic respiratory failure, COPD exacerbation, bilateral pulmonary effusions, atelectasis, and confusion. Continue Antibiotics. Continues to require significant respiratory support with prolonged BiPAP. Not making significant progress over the past 2-3 days. Extensive discussion with family (gr
[2020-11-18 09:26] LABS: Procalcitonin 0.045 ng/mL (0.0-2.0)
[2020-11-18 09:35] LABS: C-Reactive Protein < 0.3 mg/L (0-4)
[2020-11-18 09:43] LABS: Anion Gap 4.3 mEq/L (5-15)
[2020-11-18 09:44] LABS: Carbon Dioxide 49 mmol/L (22.0-30.0)
[2020-11-18 09:51] LABS: Erythrocyte Sedimentation Rate 12 mm/hr (0-30)
[2020-11-18 10:15] LABS: Eosinophils % 1 % (0-3); Lymphocytes % 10 % (10-50); Monocytes % 6 % (2-9); Neutrophils % 79 % (42-76); Nucleated Red Blood Cells 2; Total Cells Counted 100
[2020-11-18 10:22] LABS: Hypochromasia 3+; Platelet Estimate Normal
[2020-11-18 10:23] LABS: Stomatocytes 2+
[2020-11-18 12:49] LABS: ABG Base Excess 26.1 mmol/L (-2.4-2.3); ABG HCO3 51.6 mmhg (22.0-26.0); ABG Oxygen Saturation 90 % (90-100); ABG PH 7.36 mmol/L (7.35-7.45); ABG PO2 55.3 mmhg (80-100); ABG TCO2 54.5 mmhg (23-27)
[2020-11-18 12:50] LABS: Allen's Test Acceptable; Oxygen 6L %; Source Right Radial
[2020-11-18 12:51] LABS: ABG PCO2 94.5 mmhg (35.0-45.0)
--- NOTE | 2020-11-18 13:12 | HMH.PULMCON ---
*Admission Date: 11/11/20 *Reason for consult:: Acute on chronic hypercarbic respiratory failure *History of present illness: Ms. Norman is a 85-year-old female with prior history of COPD, hypercarbic respiratory failure presented to the hospital on 11/11/20 with acute hypercarbic respiratory failure being managed on noninvasive ventilatory therapy and nebulization therapy and steroids and pulmonary was called for further management. [facility] History Medical History: Reports:: Chronic Obstructive Pulmonary Disease (COPD), Gastroesophageal Reflux Disease(GERD), Hyperlipidemia Denies:: Cancer, Diabetes Mellitus Type 1, Diabetes Mellitus Type 2, Internal Pacemaker, MRSA, Seizures *Have you ever received a pneumonia vaccine?: No *Have you received a flu vaccine this season?: No Other Medical History: Reports: Arthritis, Cataracts. Denies: Blood Transfusion Reaction Other Surgeries: Yes: Other. No: Pacemaker Amputation: No Fractures: Yes - *Social History Smoking Status: Former smoker Alcohol Intake: never *Occupational Status:: retired Housing: house Household Members: family *Travel in the last 8 weeks: None Family Hx:: No significant family history ROS - Cons Reports anorexia, Reports body ache(s) - Card Reports shortness of breath, Reports shortness of breath with activity, Reports leg swelling - Resp Respiratory: Denies change in phlegm color, Reports dyspnea on exertion, Denies excessive phlegm production, Reports cough with sputum production - GI Gastrointestingal: Denies: abdominal pain - Psych Reports abnormal sleep pattern Meds Home Medications Medication Instructions Recorded Confirmed Type losartan 100 mg tablet 50 mg PO DAILY 30 Days tab 08/09/17 11/11/20 History omeprazole 20 mg capsule,delayed 20 mg PO DAILY 30 Days #30 08/09/17 11/11/20 History release Multivitamin [Multivitamins] 1 tab PO DAILY 08/17/17 11/11/20 History Albuterol Sulfate [Albuterol 1 - 2 puff IH Q4HP PRN 11/11/20 11/11/20 History Sulfate Hfa] Fluticasone/Umeclidin/Vilanter 1 puff IH DAILY 11/11/20 11/11/20 History [Trelegy Ellipta 100-62.5-25] Azithromycin [Zithromax 250mg 250 mg PO DIRECTED #6 tab 11/15/20 Rx tab] levoFLOXacin [Levaquin 500mg 500 mg PO DAILY #7 tab 11/15/20 Rx tab] predniSONE [Deltasone 20mg 20 mg PO BID 7 Days #14 tab 11/15/20 Rx tablet] Allergies Allergy/AdvReac Type Severity Reaction Status Date / Time cephalexin Allergy Intermediate Unknown Verified 11/11/20 08:06 allergy reaction Exam - Constitutional Constitutional:: Present: no acute distress, comfortable - HENMT Exam HENMT: Present: normocephalic, atraumatic - Eye Exam Eyes:: Present: normal appearance both eyes and related structures - Neck Exam Neck:: Present: normal visual inspection - Respiratory Exam Respiratory:: Present: able to speak in complete sentences, respiratory distress, decreased breath sounds, crackles - Cardiovascular Exam Cardiac:: Present: S1, S2 - GI Exam GI:: Present: soft, distended - Skin Exam Skin: Present: warm, no rash - Neurological Exam Neurological: Present: alert, awake, normal cognition - Extremities Exam Extremities: Present: no cyanosis, no clubbing, edema Internal Medicine - CN: Reslt - Labs CBC & Chem 7: 11/18/20 08:52 11/18/20 08:52 Labs: Short CBC 11/18/20 Range/Units 08:52 WBC 4.3 L (4.8-10.8) K/mm3 Hgb 11.2 L (12.2-16.2) g/dL Hct 37.7 (37.0-47.0) % Plt Count 149 (142-424) K/mm3 [facility] 11/18/20 08:52 Sodium 145 Potassium 4.3 Chloride 96 L Carbon Dioxide 49 H* BUN 25 H Creatinine 0.70 Glucose 142 H Calcium 8.4 Liver Function 11/18/20 Range/Units 08:52 Total Bilirubin 0.6 (0.2-1.3) mg/dl AST 26 (14-36) U/L ALT 43 (12-78) U/L Alkaline Phosphatase 37 L (38-126) U/L Albumin 3.1 L (3.5-5.0) g/dl - ABG Interpretation ABG results: 11/11/20 07
--- NOTE | 2020-11-18 19:33 | PC.NURSE ---
PT IS RESTING IN BED. NO COMPLAINTS OF DISCOMFORT. PT TOLERATED 6 L NC WELL FOR A COUPLE OF HOURS EARLIER IN THE SHIFT WITH 02 SATURATION THAT MAINTAINED 90-92% HOWEVER AFTER PT'S ABG RESULTS SHE HAD TO GO BACK ON THE BIPAP. PT DIURESED REALLY WELL AFTER IV LASIX THIS SHIFT. PURWICK IN PLACE. TOLERATED BATH AND BED CHANGE. EATING AND DRINKING WELL. TALKED TO FAMILY THIS AFTERNOON ABOUT PT'S PROGNOSIS AND FOR NOW PT STILL NEEDS INPATIENT MANAGEMENT AND SHE IS NOT READY TO BE TRANSFERRED TO [facility] AT THIS TIME DUE TO OXYGEN REQUIREMENT. VSS. WILL CONTINUE TO MONITOR.
[2020-11-19] VITALS (12 sets, daily range): BP systolic 90–141; BP diastolic 49–90; PULSE 57–101; RESP 18–43; TEMP 36.5–37.3; O2SAT 88–97; BMI 35.5
--- NOTE | 2020-11-19 00:11 | PC.NURSE ---
She is A&Ox3. She has slept most of the night with the bipap on at 50% FiO2. She denies pain. Trace edema noted in her BLE. She is voiding per hipolito. Urine is yellow, clear.
[2020-11-19 07:22] LABS: Basophils % 0.3 % (0.1-2.0); Eosinophils % 0.1 % (0.1-12.0); Hematocrit 37.5 % (37.0-47.0); Hemoglobin 11.4 g/dL (12.2-16.2); Lymphocytes # 0.2 K/mm3 (0.7-4.5); Lymphocytes % 4.4 % (10-50); Mean Corpuscular HGB Conc 30.3 g/dL (31.8-35.4); Mean Corpuscular Hemoglobin 29.3 pg (27.0-31.2); Mean Corpuscular Volume 96.4 fl (81-99); Mean Platelet Volume 8.6 fl (7.4-10.4); Monocytes # 0.4 K/mm3 (0.1-1.0); Monocytes % 7.5 % (1.7-9.3); Neutrophils # 4.3 K/mm3 (1.8-7.8); Neutrophils % 87.7 % (37.0-80.0); Platelet Count 135 K/mm3 (142-424); Red Blood Count 3.89 M/mm3 (4.20-5.40); Red Cell Distribution Width 13.3 % (11.5-17.5); White Blood Count 4.9 K/mm3 (4.8-10.8)
[2020-11-19 07:23] LABS: Chloride 90 mmol/L (98-107)
[2020-11-19 07:24] LABS: MANUAL DIFFERENTIAL MANUAL DIFFERENTIAL (MANUAL DIFF); Potassium 3.8 mmoL/L (3.5-5.1); Sodium 146 mmol/L (136-145)
[2020-11-19 07:26] LABS: Alanine Aminotransferase 37 U/L (12-78); Aspartate Amino Transferase 26 U/L (14-36); Bilirubin,Total 0.6 mg/dl (0.2-1.3); Blood Urea Nitrogen 27 mg/dl (7-17); Creatinine Clearance Estimated 58 mL/min (50-200); Estimated Glomerular Filt Rate 95 ml/min (>60); GFR (African American) 115 ML/MIN (>60)
[2020-11-19 07:27] LABS: Albumin Level 3.4 g/dl (3.5-5.0); Albumin/Globulin Ratio 1.4 (1.1-1.8); Alkaline Phosphatase 44 U/L (38-126); Calcium 8.6 mg/dl (8.4-10.2); Globulin 2.4 g/dL (1.3-3.2); Glucose 155 mg/dl (74-100); Magnesium 1.8 mg/dl (1.6-2.3); Total Protein,Serum 5.8 g/dl (6.3-8.2)
[2020-11-19 07:49] LABS: Hypochromasia 1+; Lymphocytes % 11 % (10-50); Monocytes % 9 % (2-9); Neutrophils % 80 % (42-76); Platelet Estimate Normal; Stomatocytes 1+; Total Cells Counted 100
[2020-11-19 07:55] LABS: Anion Gap 5.8 mEq/L (5-15)
[2020-11-19 07:56] LABS: Carbon Dioxide 54 mmol/L (22.0-30.0)
--- NOTE | 2020-11-19 07:56 | PC.NURSE ---
carlos from lab called stating co2 was 54. name and date of verified. made aware
--- NOTE | 2020-11-19 10:26 | HMH.PULMPN ---
Internal Medicine - PN: Subj *Date: 11/19/20 *Time: 10:26 Interval history: No acute respiratory events overnight. Exam - Constitutional Constitutional:: Present: no acute distress - HENMT Exam HENMT: Present: normocephalic, atraumatic - Eye Exam Eyes:: Present: normal appearance both eyes and related structures - Neck Exam Neck:: Present: normal visual inspection - Respiratory Exam Respiratory:: Present: able to speak in complete sentences, no respiratory distress, crackles - Cardiovascular Exam Cardiac:: Present: S1, S2 - GI Exam GI:: Present: soft, obese - Skin Exam Skin: Present: warm, no rash - Neurological Exam Neurological: Present: alert, awake - Extremities Exam Extremities: Present: no cyanosis, no clubbing, edema Assessment and Plan (1) Acute on chronic respiratory failure with hypercapnia Status: Chronic Category: Medical Code(s): J96.22 - Acute and chronic respiratory failure with hypercapnia (2) Anemia Status: Chronic Category: Medical Code(s): D64.9 - Anemia, unspecified (3) Hypernatremia Status: Resolved Category: Medical Code(s): E87.0 - Hyperosmolality and hypernatremia (4) COPD (chronic obstructive pulmonary disease) Status: Chronic Qualifiers: COPD type: COPD with acute exacerbation Qualified Code(s): J44.1 - Chronic obstructive pulmonary disease with (acute) exacerbation Category: Medical Code(s): J44.9 - Chronic obstructive pulmonary disease, unspecified (5) Essential hypertension Status: Chronic Category: Medical Code(s): I10 - Essential (primary) hypertension (6) Class 1 obesity Status: Chronic Category: Medical Code(s): E66.9 - Obesity, unspecified - Assessment and plan all Dx Assessment and Plan for all problems:: #COPD exacerbation: #Acute on chronic hypercarbic respiratory failure: 85-year-old female prior smoker carries a diagnosis COPD. After talking with her. Patient has been noncompliant with her inhaler therapy has been using only albuterol along with nebulizers as needed. Patient presented with hypercarbic respiratory failure and has been intermittently on noninvasive ventilator therapy since admission. Patient denies any prior use of noninvasive ventilation. She has been on long-term oxygen therapy at 3 to 4 L at home. Denies any recent exacerbations. CT on admission showed bilateral lower lobe pulmonary infiltrates, no evidence of pulmonary embolism. Repeat CTA from yesterday showed worsening bilateral infiltrates along with worsening bilateral effusion and left lower lobe collapse. No sputum cultures available for review. No respiratory viral PCR available for review. Etiology of this patient's current worsening/on improving hypercarbic respiratory likely a combination of pneumonia, worsening effusions, immobility, deconditioning and atelectasis. Patient was off BiPAP since this morning with repeat ABG showed worsening hypercarbic respiratory failure. Interval update: Patient respiratory status slightly improved from yesterday. She really this morning remained in 4 L nasal cannula. She tolerated BiPAP well yesterday night. Plan: -Recommend aggressive PT / OT while inpatient. -Recommend weaning methylprednisolone to 40mg IV every 8 hours -Continue levofloxacin for a total of 7 days -Continue noninvasive ventilatory therapy nightly - BiPAP 10/6 with RR 14 and Fio2 of 50% with sat goal of 88 to 92% -DuoNebs every 4 hours scheduled along with budesonide every 12 scheduled -Incentive spirometry and chest physiotherapy. -Agree with aggressive diuresis. Thank you for involving pulmonary in this patient care. We will continue to follow.
--- NOTE | 2020-11-19 10:42 | SW/DCPLANNER ---
Addendum entered by Mari Engle 11/20/20 11:33: DISCHARGING HOME WITH DAUGHTERDANTE TODAY WITH HOSPICE TO FOLLOW... EQUIPMENT HAS BEEN DELIVERED... Original Note: SENT REFERRAL TO [facility] TODAY TO COORDINATE A TIME TO MEET WITH DAUGHTERS TO DISCUSS A PLAN FOR THIS PATIENT... HOSPICE DID RECEIVE REFERRAL AND WILL SPEAK WITH FAMILY... WILL WORK ON DISPOSITION ONCE A PLAN IS ESTABLISHED...
--- NOTE | 2020-11-19 14:03 | HMH.ACPN2 ---
Internal Medicine - PN: Subj *Date: 11/19/20 *Time: 14:03 Interval history: Report from pulmonology reviewed and appreciated. Patient's family yesterday and she had quite a long talk, they have elected to discuss case with hospice to pursue going home. This afternoon patient is off her BiPAP, talking and very alert and states that she does not want to wear the mask anymore Exam Vital signs and Labs for Last 24 Hours: Temp Pulse Resp BP Pulse Ox 98.4 F 94 H 26 H 141/90 H 97 11/19/20 08:00 11/19/20 12:59 11/19/20 08:00 11/19/20 08:00 11/19/20 08:00 Laboratory Results - last 24 hr 11/19/20 06:34: WBC 4.9, RBC 3.89 L, Hgb 11.4 L, Hct 37.5, MCV 96.4, MCH 29.3, MCHC 30.3 L, RDW 13.3, Plt Count 135 L, MPV 8.6, Neut % (Auto) 87.7 H, Lymph % (Auto) 4.4 L, Terrell % (Auto) 7.5, Eos % (Auto) 0.1, Baso % (Auto) 0.3, Neut # (Auto) 4.3, Lymph # (Auto) 0.2 L, Terrell # (Auto) 0.4, Eos # (Auto) 0.0, Baso # (Auto) 0.0, Total Counted 100, Neutrophils % (Manual) 80 H, Lymphocytes % (Manual) 11, Monocytes % (Manual) 9, Platelet Estimate Normal, Hypochromasia 1+, Stomatocytes 1+ 11/19/20 06:34: Sodium 146 H, Potassium 3.8, Chloride 90 L, Carbon Dioxide 54 H*, Anion Gap 5.8, BUN 27 H, Creatinine 0.60, Estimated Creat Clear 58, Estimated GFR 95, Est GFR ( Amer) 115, Glucose 155 H, Calcium 8.6, Magnesium 1.8, Total Bilirubin 0.6, AST 26, ALT 37, Alkaline Phosphatase 44, Total Protein 5.8 L, Albumin 3.4 L, Globulin 2.4, Albumin/Globulin Ratio 1.4 I & O for Last 24 hours: Intake & Output 11/17/20 11/18/20 11/19/20 08/05/21 11:59 11:59 11:59 11:59 Intake Total 1620 / 1620 490 / 490 600 / 600 120 / 120 Output Total 950 / 950 1900 / 2600 700 / 700 Balance 1620 / 1620 -460 / -460 -1300 / -2000 -580 / -580 Weight 201 lb 9.6 oz 201 lb 4 oz 200 lb 9.93 oz Microbiology Reports for the Last 24 Hours: Microbiology 11/11/20 02:50 Blood Blood Culture - Final Staphylococcus hominis Narrative: Alert, somewhat irascible, oriented x3. Lung melgar seem to be well-expanded. No major changes. Pulse rate regular. No visible edema in her hands or face. Facial nerves intact. Assessment and Plan (1) Acute on chronic respiratory failure with hypercapnia Status: Chronic Category: Medical Code(s): J96.22 - Acute and chronic respiratory failure with hypercapnia (2) Anemia Status: Chronic Category: Medical Code(s): D64.9 - Anemia, unspecified (3) Hypernatremia Status: Resolved Category: Medical Code(s): E87.0 - Hyperosmolality and hypernatremia (4) COPD (chronic obstructive pulmonary disease) Status: Chronic Qualifiers: COPD type: COPD with acute exacerbation Qualified Code(s): J44.1 - Chronic obstructive pulmonary disease with (acute) exacerbation Category: Medical Code(s): J44.9 - Chronic obstructive pulmonary disease, unspecified (5) Essential hypertension Status: Chronic Category: Medical Code(s): I10 - Essential (primary) hypertension (6) Class 1 obesity Status: Chronic Category: Medical Code(s): E66.9 - Obesity, unspecified - Assessment and plan all Dx Assessment and Plan for all problems:: Given patient's significant and end-stage emphysema hospice is very reasonable and very appropriate. I discussed case with Yeimy HuffRuchi Bird and the hospice nurse in attendance today. They will have a family conference today. I am very comfortable with her going home on nasal cannula only and symptom control, hopefully this can happen as early as tomorrow to maximize her time with family
--- NOTE | 2020-11-19 15:34 | PC.NURSE ---
patient has done okay this shift. has been off and on the bipap, and is currently on 4l nc, sating 85-89%. has been incontinent. has ate a small amount today. no complaints. assist with turns as needed. vitals stable
--- NOTE | 2020-11-19 18:49 | PC.NURSE ---
No acute changes since taking over care of pt at appox 1545. Remains on 4 L NC, receiving neb at this time. CB in reach. VSS
[2020-11-20 02:49] VITALS: RESP 20; RESP 30
--- NOTE | 2020-11-20 03:21 | PC.NURSE ---
A&O. VSS. No complaints of patient. Patient rested well throughout shift. NO further concerns voiced to RN
[2020-11-20 04:00] VITALS: BP 131/74; PULSE 100; RESP 28; TEMP 37.1; O2SAT 92
[2020-11-20 05:00] VITALS: BMI 32.6
[2020-11-20 06:35] VITALS: PULSE 90; RESP 11; RESP 20; O2SAT 90
--- NOTE | 2020-11-20 07:40 | PC.NURSE ---
Dr. Galvez in room with care team.
[2020-11-20 08:00] VITALS: BP 156/66; PULSE 109; RESP 18; TEMP 36.7; O2SAT 84; O2SAT 87
--- NOTE | 2020-11-20 08:37 | HMH.DCSUM ---
General - General Admission date:: 11/11/20 Discharge date: 11/20/20 HPI HPI: Ms. Pang is an 85-year-old female with chronic hypoxemic respiratory failure (end-stage COPD) on 3-4 L nasal cannula at home. She was brought to the ER last night via EMS due to worsening confusion, tremor, hypoxia at home. Per ER documentation and her granddaughter at bedside, patient's oxygen was turned up to 5 L and she was still satting in the 80s at best. When EMS arrived they put her on higher oxygen support with inability to get her above 90. Family and EMS convinced her to come to the ER for further evaluation. On arrival she was worked up for her respiratory failure. Initial labs concerning for hypercarbia, hypoxemia, and possible pneumonia on chest imaging. Patient additionally has history of hypertension, GERD, and former tobacco use. Patient more alert on interview this morning. CO2 has decreased from over 120 to the 90 range. Respiratory acidosis improving. Patient transition to nasal cannula for interview and able to answer questions though disoriented to place and time. Denies any pain. Still feels short of breath. Afebrile. Blood pressure stable. Family at bedside, updated on plan and diagnosis at this time. Hospital Course Hospital Course: Patient was admitted as noted above and had a long and somewhat complex course in regard to disposition planning. In regards to her medical issues, she has severe, terminal emphysema, and has had this for several years even though I did not sure the family understands the severity and longevity of her disease. Briefly, she was placed initially on BiPAP and tolerated this fairly well with improvement, we tried trilogy devices and facemask oxygen to try to make it possible for her to either go home or perhaps to long-term care for rehabilitation and multiple discussions and plans were made about this but with a variety of reasons, namely the patient's own unwillingness and vacillation regarding long-term care placement she was actually never placed at the [facility] which had initially accepted her. After again discussing with patient and family her end-stage disease and her goals of care, it was decided amongst them that they would rather have her home with hospice care. Yesterday hospice enrolled her as a patient and have made arrangements for her to be discharged home today. Interestingly she has been able to tolerate nasal cannula fairly well, she is actually refused going back on BiPAP, facemask or trilogy because she does not want a mask-which is certainly reasonable given her end-stage of illness and her O2 saturations have been in the low to mid 80s on her current nasal cannula. This morning she understands that she can be able to go home with hospice care and this will be accomplished. Please note that discharge medications are noted in the discharge summary. Overall prognosis is poor, she maintains a DNR status and we will continue to respect this if she returns back to the hospital. [facility] will be involved on discharge. Objective Vital signs: Temp Pulse Resp BP Pulse Ox 98.1 F 109 H 18 156/66 H 84 L 11/20/20 08:00 11/20/20 08:00 11/20/20 08:00 11/20/20 08:00 11/20/20 08:00 no acute distress, mild distress - *Routine HEENT Exam Head: Present: normocephalic Eye: Present: EOMI, PERRL ENT: Present: mucous membranes moist - *Routine Neck Exam Present: supple - *Routine Respiratory Exam Present: accessory muscle use, rhonchi, distant breath sounds - *Routine Cardiovascular Exam Present: RRR, murmur - *Routine Abdominal Exam Present: soft, normoactive bowel sounds. Absent: tenderness - *Routine Extremities Exam Present: edema. Absent: cyanosis, clubbing Comments: Trace ankle edema. Good distal pulses. - *Routine Skin Exam Present: warm. Absent: rash - *Routine Neurological Exam Present: alert Patient can
--- NOTE | 2020-11-20 09:00 | XR_ITS ---
PROCEDURE: XR CHEST PORTABLE CLINICAL HISTORY: Hypoxia COMPARISON: CR CXR2V XR chest 2V from 08/17/2017 CR XR CHEST PORTABLE from 11/11/2020 CR XR CHEST PORTABLE from 11/11/[address] ANGIO CHEST PE PROTOCOL from 11/18/2020 FINDINGS: Cardiomegaly with mild pulmonary venous congestion. Low lung volumes with increased density in the lower lobes consistent with atelectasis and or infiltrate. Small bilateral effusions. Overall no significant change. No acute bony abnormalities. IMPRESSION: No significant change mild CHF with bibasilar airspace disease and small bilateral effusions Dictated by: Torey Pascual MD 11/20/2020 10:17 Torey Pascual MD in OV 11/20/2020 10:17
--- NOTE | 2020-11-20 11:05 | HMH.PULMPN ---
Internal Medicine - PN: Subj *Date: 11/20/20 *Time: 11:05 Interval history: No acute respiratory vents. Patient admits improvement in her symptoms Exam - Constitutional Constitutional:: Present: no acute distress, comfortable - HENMT Exam HENMT: Present: normocephalic, atraumatic - Eye Exam Eyes:: Present: normal appearance both eyes and related structures - Neck Exam Neck:: Present: normal visual inspection - Respiratory Exam Respiratory:: Present: able to speak in complete sentences, no respiratory distress, crackles. Absent: respiratory distress, wheezing - Cardiovascular Exam Cardiac:: Present: S1, S2 - GI Exam GI:: Present: soft, obese - Skin Exam Skin: Present: warm, no rash - Neurological Exam Neurological: Present: alert, awake Assessment and Plan (1) Acute on chronic respiratory failure with hypercapnia Status: Chronic Category: Medical Code(s): J96.22 - Acute and chronic respiratory failure with hypercapnia (2) Anemia Status: Chronic Category: Medical Code(s): D64.9 - Anemia, unspecified (3) Hypernatremia Status: Resolved Category: Medical Code(s): E87.0 - Hyperosmolality and hypernatremia (4) COPD (chronic obstructive pulmonary disease) Status: Chronic Qualifiers: COPD type: COPD with acute exacerbation Qualified Code(s): J44.1 - Chronic obstructive pulmonary disease with (acute) exacerbation Category: Medical Code(s): J44.9 - Chronic obstructive pulmonary disease, unspecified (5) Essential hypertension Status: Chronic Category: Medical Code(s): I10 - Essential (primary) hypertension (6) Class 1 obesity Status: Chronic Category: Medical Code(s): E66.9 - Obesity, unspecified - Assessment and plan all Dx Assessment and Plan for all problems:: #COPD exacerbation: #Acute on chronic hypercarbic respiratory failure: 85-year-old female prior smoker carries a diagnosis COPD. After talking with her. Patient has been noncompliant with her inhaler therapy has been using only albuterol along with nebulizers as needed. Patient presented with hypercarbic respiratory failure and has been intermittently on noninvasive ventilator therapy since admission. Patient denies any prior use of noninvasive ventilation. She has been on long-term oxygen therapy at 3 to 4 L at home. Denies any recent exacerbations. CT on admission showed bilateral lower lobe pulmonary infiltrates, no evidence of pulmonary embolism. Repeat CTA from yesterday showed worsening bilateral infiltrates along with worsening bilateral effusion and left lower lobe collapse. No sputum cultures available for review. No respiratory viral PCR available for review. Etiology of this patient's current worsening/on improving hypercarbic respiratory likely a combination of pneumonia, worsening effusions, immobility, deconditioning and atelectasis. Patient admits significant improvement in her symptoms today and is back to her baseline as per the patient She continued to remain on nasal cannula and has been tolerating nocturnal noninvasive ventilatory therapy for her hypercarbic respiratory failure. Plan: -PT / OT -Prednisone 40mg dailyx5 more days -Continue levofloxacin for a total of 7 days -Continue noninvasive ventilatory therapy nightly - BiPAP 10/6 with RR 14 and Fio2 of 50% with sat goal of 88 to 92%. Recommend sleep study evaluation as an outpatient to rule out associate sleep apnea contributing to her hypercarbic respiratory failure -DuoNebs every 4 hours scheduled along with budesonide every 12 scheduled -Incentive spirometry and chest physiotherapy. -Agree with aggressive diuresis. As per chart review patient and the family after discussions with the primary care physician's, plan was to discharge this patient home with home hospice. Please call pulmonary with any further questions.
--- NOTE | 2020-11-20 12:00 | PC.NURSE ---
[facility] notified of need for transport. Transport will be available after 1pm.
--- NOTE | 2020-11-20 15:00 | PC.NURSE ---
[facility] here for pt. IV removed, SPO2 removed and report given to Carley
--- NOTE | 2020-11-20 15:06 | PC.NURSE ---
[facility] notified that ambulance is here for pt. and pt. will be leaving facility shortly. v/u.
--- NOTE | 2020-11-20 15:07 | PC.NURSE ---
Pt. left unit with ambulance services at this time.
--- NOTE | 2020-11-20 17:59 | PC.NURSE ---
[facility] CALLED FOR TRANSPORT, TRANSPORT AVAILABLE AFTER 13:00
== END 2020-11-20 18:08 | disposition hospice, home (50) | DRG 189 ==
LOC: ER 03:50 → ICU 03:55 → 2ND 18:09
PROVIDERS: Internal Medicine Adolescent Medicine; Internal Medicine Pulmonary Disease; Admitting Provider Emergency Medicine; Emergency Provider Emergency Medicine; PCP Internal Medicine Adolescent Medicine; Visit Provider Internal Medicine Adolescent Medicine
DX: J96.22 Acute and chronic respiratory failure with hypercapnia (principal); E87.0 Hyperosmolality and hypernatremia; J43.9 Emphysema, unspecified; Z20.822 Contact with and (suspected) exposure to COVID-19; M19.90 Unspecified osteoarthritis, unspecified site; E78.5 Hyperlipidemia, unspecified; K21.9 Gastro-esophageal reflux disease without esophagitis; J96.11 Chronic respiratory failure with hypoxia; Z87.891 Personal history of nicotine dependence; Z99.81 Dependence on supplemental oxygen; D64.9 Anemia, unspecified; I10 Essential (primary) hypertension; E66.9 Obesity, unspecified; Z68.32 Body mass index [BMI] 32.0-32.9, adult; Z51.5 Encounter for palliative care; Z91.14 Patient's other noncompliance with medication regimen
CPT/HCPCS: 36415; 71045; 71275; 80048; 80053; 80202; 82803; 82962; 83605; 83735; 83880; 84145; 84484; 85007; 85025; 85651; 86140; 87040; 87077; 87186; 93005; 93306; 94640; 94660; 94761; 96365; 96367; 97110; 97162; 97166; 99285; J0456; J1956; J3370; Q9967; U0003